=== PATIENT | female | born 1955 | race Caucasian/White ===

== ENCOUNTER → 2016-10-16 | Outpatient (CLI) | payer OTHER ==
[~2016-10-16] MED LIST: GADOBUTROL 10 ML VIAL IVP ONE
--- NOTE | 2016-10-16 15:56 | MR ---
MRI of the Brain(Without and With Contrast) Contrast: 7 mL intravenous Gadavist without complication. History: Non-small cell lung cancer, initial staging for brain metastases Comparison: None Technique: Sagittal and axial T1-weighted images. Axial fast T2 2nd echo, GRE, diffusion and FLAIR im ages. Postgadolinium sagittal, axial and coronal images. Findings: There is no evidence of parenchymal metastatic disease or abnormal meningeal enhancement to suggest meningeal carcinomatosis. There is prominent bilateral supratentorial isovolumic T2-weighted hyperintensity in the subcortical deep and periventricular white matter. Many lesions are confluent. There is no associated enhancement, hemorrhage on the gradient imaging sequence or restricted diffus ion. There is no primary brain mass lesion, hemorrhage, acute infarction, hydrocephalus, or abnormal menin geal enhancement to suggest meningitis. There is no evidence of a chronic subdural hematoma. The para nasal and mastoid sinuses are normally aerated. Flow-void is present in both cavernous carotid arteri es and in the basilar artery. The craniocervical junction is normal. There is no calvarial metastati c disease. No evidence for metastatic lung cancer. No evidence for metastatic lung cancer. There is d egenerative disk disease involving the C4-C5 level. The left mandibular condyle appears eroded and baltazar th temporomandibular joint menisci are anteriorly displaced in front of the mandibular condyles. Impression: 1. No evidence of metastatic disease 2. Moderately severe white matter disease. Is this patient chronically hypertensive or diabetic?
== END ==
LOC: FIMAGING 08:41
PROVIDERS: ATTEND Internal Medicine Hematology & Oncology
DX: C34.90 Malignant neoplasm of unspecified part of unspecified bronchus or lung (principal); R90.82 White matter disease, unspecified
CPT/HCPCS: A9585

== ENCOUNTER 2016-11-16 07:08 | Inpatient (IN) | payer OTHER ==
[~2016-11-16 07:08] MED LIST changes: -GADOBUTROL 10 ML VIAL IVP ONE; +cefOXitin SODIUM 1 GM in D5W 50 ML IV ONE
[2016-11-16] MEDS ORDERED: ONDANSETRON 4 MG/2 ML VIAL IVP PRN (07:34)
[2016-11-16] MEDS ORDERED: ACETAMINOPHEN 325 MG TAB PO PRN (07:34)
[2016-11-16] MEDS ORDERED: LIDOCAINE 1% 5 ML SDV ONE (07:49)
[2016-11-16] MEDS ORDERED: BUPIVACAINE/EPI 0.5% 30 ML SDV ONE (07:58)
[2016-11-16] MEDS ORDERED: LR 1,000 ML IV ONE (08:32)
[2016-11-16] MEDS ORDERED: LIDOCAINE 1% 5 ML SDV ID PRN (08:32)
[2016-11-16] MEDS ORDERED: fentaNYL 250 MCG/5 ML INJ ONE (09:48)
[2016-11-16] MEDS ORDERED: PROPOFOL 200 MG/20 ML VIAL ONE (09:51)
[2016-11-16] MEDS ORDERED: LIDOCAINE 2% 5 ML SDV ONE (09:52)
[2016-11-16] MEDS ORDERED: ROCURONIUM 50 MG/5 ML VIAL ONE ×2 (09:52→11:02)
[2016-11-16] MEDS ORDERED: DEXAMETHASONE 4 MG/ML VIAL ONE (09:54)
[2016-11-16] MEDS ORDERED: MIDAZOLAM 2 MG/2 ML VIAL ONE ×2 (10:02→13:07)
--- NOTE | 2016-11-16 12:39 | POSTOPPROG ---
Post Op Note Date of Operation: 11/16/16 Surgeon: Aiden Ge Manager Intelligence: Faina Gutierrez Anesthesiologist: Sameer Harris Anesthesia: GET(General Endotracheal) Pre-op Diagnosis: LLL lung CA Post-op Diagnosis: same Procedure: L VATS c LLL lobectomy Findings: tumor in LLL, slight puckering of visceral pleura, no obvious local mets Inf/Abcess present in the surg proc area at time of surgery?: No EBL: Minimal Complications: none Drains: Other (2 28 Fr chest tubes) Specimen(s): LLL to pathology
[2016-11-16] MEDS ORDERED: fentaNYL 100 MCG/2 ML INJ ONE ×3 (12:50→13:26)
[2016-11-16] MEDS ORDERED: ceFAZolin 2 GM/DEXTROSE 100 ML IV SCH (14:00)
[2016-11-16] MEDS: cefOXitin SODIUM 1 GM in D5W 50 ML IV SCH ×3 (14:12→23:35)
--- NOTE | 2016-11-16 14:16 | SOAPPROG ---
SOAP Progress Note Assessment/Plan: Assessment/Plan: 61 Y F s/p L VATS c LLL lobectomy for adenoCA, POD#0. Post op check. AFVSS. No air leak at rest (did not test cough). Pain controlled. Wounds dressed. Continue routine post op care. 11/17/16 14:59 Objective: Vital Signs Temp Pulse Resp BP Pulse Ox 36.9 C 60 14 140/67 H 95 11/16/16 14:08 11/16/16 14:08 11/16/16 14:08 11/16/16 14:08 11/16/16 14:08 11/15/16 11/16/16 11/17/16 05:59 05:59 05:59 Intake Total 900 Output Total 310 Balance 590 ICD10 Worksheet Patient Problems: Problems Problem Status Onset Lung cancer Acute
--- NOTE | 2016-11-16 14:29 | GOP ---
DATE OF OPERATION: 11/16/2016 SURGEON: Aiden Ge MD [employer] WORKER: YUSUF Lacey ANESTHESIOLOGIST: Dr. Harris PREOPERATIVE DIAGNOSIS: Left lower lobe adenocarcinoma of the lung. POSTOPERATIVE DIAGNOSIS: Left lower lobe adenocarcinoma of the lung. PROCEDURE PERFORMED: Video-assisted thoracoscopic surgery-assisted left lower lobectomy. FINDINGS: The patient was found to have a 3 cm-appearing lesion on the periphery of the left lower lobe. There was no evidence of any spread of the tumor in the thorax. Multiple small nodes were se en and appeared to be significantly involved. DESCRIPTION OF PROCEDURE: Patient was taken to the operating room, where she received satisfactory general endotracheal anesthesia by Dr. Harris. She was placed in the right lateral decubitus position, and prepped and draped in the usual sterile fashion. A short incision was made in the 6th intercostal space at the midaxillary line and a trocar was intr oduced. The thoracoscope was introduced. Two other trocars were placed in the upper chest under di rect vision. The major fissure was exposed and the vessels were dissected free of the major fissure. Good visual ization of the arteries to the lingula and upper lobes were seen. The superior segment artery was i solated and the basal vessels were isolated. They were all freed up with sharp dissection and encir cled. The basal arteries were divided with an Endo DRAKE stapler, and the superior pole vessels were a lso divided with the same stapler. Hemostasis appeared to be adequate. The inferior pulmonary vein was then dissected free with the Harmonic Scalpel and sharp dissection t ill it could be isolated. It was then divided with the Endo DRAKE stapler, as well. Another small ve nous branch was also isolated and divided with that stapler. This left only the bronchus. This bro nchus was cleaned up of all the attached tissue. It was crossclamped, and there was good inflation of the upper lobe. It was then divided with the DRAKE stapler as well and the specimen was then remov ed through a mini thoracotomy incision, which had been used for the stapler input. Wound was irrigated. Hemostasis was assured. Trocars were removed under direct vision. Two #28 ch est tubes were brought in, 1 anteriorly and 1 posteriorly, secured to the skin with silk sutures, th en a Marcaine catheter was placed in the posterior chest as well. The mini thoracotomy site was nadine sed with running #1 Vicryl suture and 3-0 Vicryl for the subcu, 4-0 Monocryl subcuticular stitch for the skin. The remaining single trocar site was closed with a 4-0 Monocryl for the skin. The wound s were all infiltrated with 0.5% Marcaine and the chest was sprayed with some topical Marcaine as we ll. The chest tubes and the Marcaine catheter were secured with 2-0 silk sutures. The wounds were all infiltrated. She tolerated the procedure well. She was taken to the recovery room in good condition. The specim en was sent to Pathology and revealed no involvement of the bronchial margins and no obvious trudi d isease. She tolerated the procedure well, taken to recovery room in good condition. /[id number]/MODL
[2016-11-16] MEDS: BUPIVACAINE 0.5% 30 ML SDV MISC SCH ×3 (14:36→21:25)
[2016-11-16] MEDS: OXYCODONE/APAP 5/325 TAB PO PRN (16:48)
[2016-11-16] MEDS: HYDROmorphONE/DILAUDID 1 MG/ML SYR IVP PRN ×2 (16:48→20:10)
[2016-11-16] MEDS: KETOROLAC 15 MG/1 ML SDV IVP SCH ×2 (18:20→23:35)
[2016-11-16] MEDS: D5W 1/2 NS W/ 20 KCl/L 1,000 ML IV SCH (18:27)
[2016-11-16] MEDS ORDERED: NON-FORMULARY NEW DRUG (Zolpidem Tartrate [Ambien] 10 MG) PO SCH (21:00)
[2016-11-16] MEDS: HYDROCODONE/APAP 5/325 TAB PO PRN (21:25)
[2016-11-16] MEDS: ZOLPIDEM TARTRATE 5 MG TAB PO SCH (23:41)
[2016-11-17] MEDS: D5W 1/2 NS W/ 20 KCl/L 1,000 ML IV SCH (01:36)
[2016-11-17] MEDS: BUPIVACAINE 0.5% 30 ML SDV MISC SCH ×6 (01:37→21:41)
[2016-11-17] MEDS: HYDROmorphONE/DILAUDID 1 MG/ML SYR IVP PRN ×4 (01:37→21:39)
[2016-11-17] MEDS: OXYCODONE/APAP 5/325 TAB PO PRN ×6 (01:38→21:47)
[2016-11-17] MEDS: KETOROLAC 15 MG/1 ML SDV IVP SCH ×3 (05:22→17:31)
[2016-11-17] MEDS: cefOXitin SODIUM 1 GM in D5W 50 ML IV SCH (05:22)
[2016-11-17] MEDS: SENNOSIDES/DOCUSATE SODIUM TAB PO SCH ×2 (08:45→21:48)
--- NOTE | 2016-11-17 09:56 | SOAPPROG ---
SOAP Progress Note Assessment/Plan: Assessment/Plan: 61 Y F s/p L VATS c LLL lobectomy for adenoCA, POD#1. Doing well. Pain controlled. Small air leak. Tolerating regular diet. Add PRN laxatives. D/c alarcon. Buff capp IV. Ppx abx to today. Dispo: may transfer from ICU. 11/17/16 09:53 Subjective: Pain worse while in bed. Didn't sleep well. No SOB. No N/V. Objective: Vital Signs Temp Pulse Resp BP Pulse Ox 36.9 C 56 L 16 137/62 H 97 11/17/16 05:00 11/17/16 08:00 11/17/16 08:00 11/17/16 08:00 11/17/16 08:00 11/16/16 11/17/16 11/18/16 05:59 05:59 05:59 Intake Total 3350 Output Total 2185 Balance 1165 gen: alert, oriented, nad, sitting oob in chair w grand daughter braiding hair, smiling heent: mmm chest: ctab, small air leak, no wob cor: rrr abd: soft ext: no edema wounds: well dressed no saturation drain: thin serosanguinous ICD10 Worksheet Patient Problems: Problems Problem Status Onset Lung cancer Acute - ICD10 Problem Qualifiers (1) Lung cancer Qualifiers: Laterality: left Lung location: lower lobe of lung Qualified Code(s): C34.32 - Malignant neoplasm of lower lobe, left bronchus or lung
[2016-11-17] MEDS: DIAZEPAM 5 MG TAB PO PRN ×2 (13:25→19:36)
[2016-11-17 17:01] LABS: HEMATOCRIT 43.3 % (38.0-47.0); HEMOGLOBIN 14.3 g/dL (12.6-16.3)
[2016-11-17 17:18] LABS: ANION GAP 10 mEq/L (8-16); CALCIUM 9.9 mg/dL (8.5-10.4); CARBON DIOXIDE 28 mEq/l (22-31); CHLORIDE 101 mEq/L (97-110); GLOMERULAR FILTRATION RATE 56; GLUCOSE 86 mg/dL (70-100); POTASSIUM 5.2 mEq/L (3.5-5.2); SODIUM 139 mEq/L (134-144)
[2016-11-17] MEDS ORDERED: HYDROmorphONE/DILAUDID 2 MG/ML INJ IVP PRN (17:54)
[2016-11-17] MEDS: ZOLPIDEM TARTRATE 5 MG TAB PO SCH (21:48)
[2016-11-18] MEDS: KETOROLAC 15 MG/1 ML SDV IVP SCH ×4 (00:18→17:45)
[2016-11-18] MEDS: BUPIVACAINE 0.5% 30 ML SDV MISC SCH ×6 (02:25→22:09)
[2016-11-18] MEDS: SENNOSIDES/DOCUSATE SODIUM TAB PO SCH ×2 (08:25→22:10)
[2016-11-18] MEDS: OXYCODONE/APAP 5/325 TAB PO PRN ×3 (10:00→22:10)
[2016-11-18] MEDS: DIAZEPAM 5 MG TAB PO PRN ×3 (10:01→22:27)
[2016-11-18] MEDS: BISACODYL 10 MG SUPP PR PRN (12:06)
--- NOTE | 2016-11-18 14:02 | SOAPPROG ---
SOAP Progress Note Assessment/Plan: Assessment: 61yo female s/p LLL lobectomy, POD 2, adenocarcinoma Path pending. Tolerating regular diet, pain well controlled, doing deep breathing exercises, nursing unable to put marcaine in catheter PE Awake alert Left chest tubes in place, catheter pulled back approx 2cm, kinked just under skin CTA B/L Chest tubes with high output, no leak evident today. Plan: continue suction ok to try and use marcaine catheter now that it has been pulled back, if not working then ok to remove, discussed with nursing. 11/18/16 13:57 Objective: Vital Signs Temp Pulse Resp BP Pulse Ox 36.8 C 54 L 14 122/69 H 94 11/18/16 08:33 11/18/16 08:33 11/18/16 08:33 11/18/16 08:33 11/18/16 08:33 Laboratory Results 11/17/16 16:15 11/17/16 16:15 11/17/16 11/18/16 11/19/16 05:59 05:59 05:59 Intake Total 3350 450 Output Total 2185 1760 Balance 1165 -1310 ICD10 Worksheet Patient Problems: Problems Problem Status Onset Lung cancer Acute
[2016-11-18] MEDS: HYDROmorphONE/DILAUDID 1 MG/ML SYR IVP PRN ×2 (14:35→22:09)
[2016-11-18] MEDS: ZOLPIDEM TARTRATE 5 MG TAB PO SCH (22:10)
[2016-11-19] MEDS: BUPIVACAINE 0.5% 30 ML SDV MISC SCH ×6 (01:23→21:41)
[2016-11-19] MEDS: KETOROLAC 15 MG/1 ML SDV IVP SCH ×5 (01:23→23:59)
[2016-11-19] MEDS: SENNOSIDES/DOCUSATE SODIUM TAB PO SCH ×2 (08:12→21:40)
[2016-11-19] MEDS: HYDROmorphONE/DILAUDID 1 MG/ML SYR IVP PRN ×5 (09:16→20:30)
[2016-11-19] MEDS: DIAZEPAM 5 MG TAB PO PRN ×2 (09:16→17:38)
[2016-11-19] MEDS: OXYCODONE/APAP 5/325 TAB PO PRN ×2 (12:15→21:41)
--- NOTE | 2016-11-19 13:12 | SOAPPROG ---
SOAP Progress Note Assessment/Plan: Assessment: 61yo female s/p LLL lobectomy, POD 3, adenocarcinoma biosy history, Path from surgery consistent with adenocarcinoma, negative margins Pain controlled, catheter working well now, tolerating regular diet, doing deep breathing exercises PE Awake alert Chest left tubes in place, no leak, bandage dry, wheezes, small amount of crackles B/L CXR no significant consolidation, effusion Chest tube output decreased Plan Chest tube removal likely Wednesday Possibly home late Wednesday, or Wednesday. 11/18/16 13:57 11/19/16 13:08 Objective: Vital Signs Temp Pulse Resp BP Pulse Ox 36.7 C 56 L 16 137/74 H 97 11/19/16 07:23 11/19/16 07:23 11/19/16 07:23 11/19/16 07:23 11/19/16 07:23 Laboratory Results 11/17/16 16:15 11/17/16 16:15 11/18/16 11/19/16 11/20/16 05:59 05:59 05:59 Intake Total 450 Output Total 1760 180 130 Balance -1310 -180 -130 ICD10 Worksheet Patient Problems: Problems Problem Status Onset Lung cancer Acute
[2016-11-19] MEDS: ZOLPIDEM TARTRATE 5 MG TAB PO SCH (21:40)
[2016-11-20] MEDS: BUPIVACAINE 0.5% 30 ML SDV MISC SCH ×7 (02:03→22:27)
[2016-11-20] MEDS: KETOROLAC 15 MG/1 ML SDV IVP SCH ×4 (06:00→23:33)
[2016-11-20] MEDS: SENNOSIDES/DOCUSATE SODIUM TAB PO SCH ×2 (07:27→22:28)
--- NOTE | 2016-11-20 13:44 | SOAPPROG ---
SOAP Progress Note Assessment/Plan: Assessment: 61yo female s/p LLL lobectomy, POD 4, adenocarcinoma biopsy history, Path from surgery consistent with adenocarcinoma, negative margins Pain controlled, catheter working well, tolerating regular diet, still doing deep breathing exercises PE Awake alert, just done brushing her teeth Chest left tubes in place, no leak, bandage dry, wheezes, small amount of crackles B/L CXR no significant consolidation, effusion Chest tube output decreased Plan Chest tube removal likely Wednesday Possibly home late Wednesday, or Wednesday. 11/18/16 13:57 11/19/16 13:08 11/20/16 13:39 Objective: Vital Signs Temp Pulse Resp BP Pulse Ox 36.9 C 83 18 137/91 H 93 11/20/16 07:39 11/20/16 13:33 11/20/16 13:33 11/20/16 13:33 11/20/16 13:33 Laboratory Results 11/17/16 16:15 11/17/16 16:15 11/19/16 11/20/16 11/21/16 05:59 05:59 05:59 Output Total 180 320 Balance -180 -320 ICD10 Worksheet Patient Problems: Problems Problem Status Onset Lung cancer Acute
--- NOTE | 2016-11-20 13:45 | SOAPPROG ---
SOAP Progress Note Assessment/Plan: Assessment: 61yo female s/p LLL lobectomy, POD 4, adenocarcinoma biopsy history, Path from surgery consistent with adenocarcinoma, negative margins Pain controlled, complaining of swelling/stiffness on right side of her neck- possibly subcutaneous emphysema, catheter working well, tolerating regular diet , still doing deep breathing exercises PE Awake alert Chest left tubes still in place, no leak, bandage dry, trace wheezes and small amount of crackles B/L CXR done yesterday no significant consolidation, effusion Chest tube output increased this morning, if <150 tomorrow, OK to remove chest tube Plan Continue to monitory swelling/stiffness of right side of neck Possible Chest tube removal tomorrow and may go home if everything goes well. Possibly home late Wednesday, or Wednesday. 11/18/16 13:57 11/19/16 13:08 11/20/16 13:42 11/20/16 13:49 11/20/16 14:20 Subjective: Patient was complaining of swelling/stiffness on the right side of her neck possiblly subcutaneous emphysema - will continue to monitor Other than that no complaints of SOB, N/V. Objective: Vital Signs Temp Pulse Resp BP Pulse Ox 36.9 C 83 18 137/91 H 93 11/20/16 07:39 11/20/16 13:33 11/20/16 13:33 11/20/16 13:33 11/20/16 13:33 Laboratory Results 11/17/16 16:15 11/17/16 16:15 11/19/16 11/20/16 11/21/16 05:59 05:59 05:59 Output Total 180 320 Balance -180 -320 Gen: AAO ENT: mmm Chest: chest tube still in place, no leak, bandage dry, chest tube output increased today, trace wheezes and small crackles on both lungs Cardio: rrr Abd: soft nontender Ext: Still doing passive movements with her left arm, (-) edema ICD10 Worksheet Patient Problems: Problems Problem Status Onset Lung cancer Acute
[2016-11-20] MEDS: HYDROmorphONE/DILAUDID 1 MG/ML SYR IVP PRN ×2 (14:30→20:45)
[2016-11-20] MEDS: DIAZEPAM 5 MG TAB PO PRN (15:29)
--- NOTE | 2016-11-20 17:14 | SOAPPROG ---
[facility] Progress Note Assessment/Plan: Assessment: DOING REASONABLY WELL STATUS POST LEFT LOWER LOBECTOMY / NO AIR LEAK / CHEST TUBE DRAINAGE CONTINUES TO BE AN ISSUE / WOUNDS OKAY / CHEST X-RAY IS WELL EXPANDED PATH REVEALS NO NODES IN THE SPECIMEN BUT MARGINS ARE NEGATIVE / VISCERAL PLEURA IS PUCKERED Plan: DISCONTINUE SUCTION AND HOPEFULLY CHEST TUBE DRAINAGE WILL DECREASE / ONCOLOGY FOLLOW-UP 11/20/16 17:10 Objective: Vital Signs Temp Pulse Resp BP Pulse Ox 37.1 C 74 16 129/74 H 90 L 11/20/16 16:00 11/20/16 16:00 11/20/16 16:00 11/20/16 16:00 11/20/16 16:00 Laboratory Results 11/17/16 16:15 11/17/16 16:15 11/19/16 11/20/16 11/21/16 05:59 05:59 05:59 Output Total 180 320 Balance -180 -320 ICD10 Worksheet Patient Problems: Problems Problem Status Onset Lung cancer Acute
[2016-11-20] MEDS: DIAZEPAM 10 MG/2 ML SYR IVP PRN (18:57)
[2016-11-20] MEDS: OXYCODONE/APAP 5/325 TAB PO PRN (20:45)
[2016-11-20] MEDS: ZOLPIDEM TARTRATE 5 MG TAB PO SCH (20:45)
[2016-11-20] MEDS: HYDROCODONE/APAP 5/325 TAB PO PRN (23:34)
[2016-11-21] MEDS: HYDROmorphONE/DILAUDID 1 MG/ML SYR IVP PRN ×3 (01:25→22:40)
[2016-11-21] MEDS: BUPIVACAINE 0.5% 30 ML SDV MISC SCH ×3 (05:05→15:04)
[2016-11-21] MEDS: OXYCODONE/APAP 5/325 TAB PO PRN ×2 (05:50→22:39)
[2016-11-21] MEDS: KETOROLAC 15 MG/1 ML SDV IVP SCH ×2 (05:51→15:12)
--- NOTE | 2016-11-21 09:07 | SOAPPROG ---
SOAP Progress Note Assessment/Plan: Assessment: status post left VATS lower lobectomy for lung cancer. Chest tube output is decreasing continue chest tube for today. Hopefully we will be able to remove this tomorrow continue ambulation and incentive spirometer regular diet S: No changes O: dressing is clean dry and intact. There is serosanguineous fluid in the chest tube container. There is a very minimal air leak she has decreased lung sounds at the bases. Regular rate. she is sitting up on the side of the bed and appears comfortable Plan: 11/21/16 09:06 Objective: Vital Signs Temp Pulse Resp BP Pulse Ox 36.6 C 69 14 123/83 H 95 11/21/16 08:00 11/21/16 08:00 11/21/16 08:00 11/21/16 08:00 11/21/16 08:00 Laboratory Results 11/17/16 16:15 11/17/16 16:15 11/20/16 11/21/16 11/22/16 05:59 05:59 05:59 Output Total 320 175 Balance -320 -175 ICD10 Worksheet Patient Problems: Problems Problem Status Onset Lung cancer Acute
[2016-11-21] MEDS: HYDROCODONE/APAP 5/325 TAB PO PRN ×3 (10:03→19:48)
[2016-11-21] MEDS: SENNOSIDES/DOCUSATE SODIUM TAB PO SCH ×2 (10:04→19:47)
[2016-11-21] MEDS ORDERED: diphenhydrAMINE 25 MG CAP PO PRN (19:41)
[2016-11-21] MEDS: ZOLPIDEM TARTRATE 5 MG TAB PO SCH (22:39)
[2016-11-22] MEDS: OXYCODONE/APAP 5/325 TAB PO PRN (02:07)
[2016-11-22] MEDS: HYDROCODONE/APAP 5/325 TAB PO PRN ×3 (09:23→21:38)
[2016-11-22] MEDS: SENNOSIDES/DOCUSATE SODIUM TAB PO SCH ×2 (09:24→21:39)
--- NOTE | 2016-11-22 12:08 | SOAPPROG ---
SOAP Progress Note Assessment/Plan: Assessment: 61yo F s/p VATs lobectomy - Chart only says 160cc out from CT but RN and patient both endorse that the output has been more like 260 which is reflected on the canister itself - keep CT, Reg diet, bowel regimen. OOBTC, doing well - Anticipate CT out tomorrow, likely home following if pain well controlled. Plan: 11/22/16 12:07 Subjective: Doing well, eating breakfast. Pain appropriate. Objective: Vital Signs Temp Pulse Resp BP Pulse Ox 37.1 C 71 16 133/79 H 90 L 11/22/16 08:00 11/22/16 08:00 11/22/16 08:00 11/22/16 08:00 11/22/16 08:00 Laboratory Results 11/17/16 16:15 11/17/16 16:15 11/21/16 11/22/16 11/23/16 05:59 05:59 05:59 Output Total 175 160 Balance -175 -160 ICD10 Worksheet Patient Problems: Problems Problem Status Onset Lung cancer Acute
[2016-11-22] MEDS: HYDROmorphONE/DILAUDID 1 MG/ML SYR IVP PRN ×2 (16:27→21:45)
[2016-11-22] MEDS: PANTOPRAZOLE SODIUM 40 MG TAB PO SCH (18:08)
[2016-11-22] MEDS: ZOLPIDEM TARTRATE 5 MG TAB PO SCH (21:38)
[2016-11-22] MEDS: DIAZEPAM 10 MG/2 ML SYR IVP PRN (23:39)
[2016-11-23] MEDS: HYDROCODONE/APAP 5/325 TAB PO PRN ×4 (04:54→21:18)
[2016-11-23] MEDS: HYDROmorphONE/DILAUDID 1 MG/ML SYR IVP PRN ×5 (04:54→23:38)
[2016-11-23] MEDS: SENNOSIDES/DOCUSATE SODIUM TAB PO SCH ×2 (08:59→21:18)
[2016-11-23] MEDS: PANTOPRAZOLE SODIUM 40 MG TAB PO SCH (08:59)
[2016-11-23] MEDS: DIAZEPAM 10 MG/2 ML SYR IVP PRN ×3 (10:12→23:31)
--- NOTE | 2016-11-23 10:59 | SOAPPROG ---
SOAP Progress Note Assessment/Plan: Assessment: 61yo female s/p LLL lobectomy, POD 4, adenocarcinoma biopsy history, Path from surgery consistent with adenocarcinoma, negative margins Pain well controlled, wants to shower, tolerating regular diet, chest tubes on water seal. PE Awake alert, moving around easily Chest 2 left tubes still in place, no leak, bandage dry, trace wheezes. Chest tube output 200/last 24hrs Plan: ok to shower then place xerofoam, gauze Possible Chest tube removal tomorrow and may go home if everything goes well. Objective: Vital Signs Temp Pulse Resp BP Pulse Ox 36.7 C 59 L 18 143/70 H 92 11/23/16 08:00 11/23/16 08:00 11/23/16 08:00 11/23/16 08:00 11/23/16 08:00 Laboratory Results 11/17/16 16:15 11/17/16 16:15 11/22/16 11/23/16 11/24/16 05:59 05:59 05:59 Intake Total 400 Output Total 160 170 Balance -160 230 ICD10 Worksheet Patient Problems: Problems Problem Status Onset Lung cancer Acute
[2016-11-23] MEDS: BISACODYL 10 MG SUPP PR PRN (21:19)
[2016-11-23] MEDS: ZOLPIDEM TARTRATE 5 MG TAB PO SCH (23:31)
[2016-11-24] MEDS: SENNOSIDES/DOCUSATE SODIUM TAB PO SCH ×2 (08:55→20:17)
[2016-11-24] MEDS: PANTOPRAZOLE SODIUM 40 MG TAB PO SCH (08:55)
[2016-11-24] MEDS: HYDROmorphONE/DILAUDID 1 MG/ML SYR IVP PRN (08:55)
[2016-11-24] MEDS: SIMETHICONE 80 MG TAB CHEW PO PRN ×2 (15:29→20:13)
[2016-11-24] MEDS: HYDROCODONE/APAP 5/325 TAB PO PRN (17:40)
--- NOTE | 2016-11-24 21:26 | SOAPPROG ---
SOAP Progress Note Assessment/Plan: Assessment/Plan: 61 Y F s/p L VATS c LLL lobectomy for adenoCA. Seen and examined earlier today. CT drainage down and no air leak. D/c'ed chest tubes. CXR c tiny apical PTX. Will get CXR in am. If stable, plan to d/c home. S: Positional pains, seem to correlate c chest tube. No SOB. O: alert, nad no wob no airleak ctab rrr wounds clean abd soft no pedal edema 11/24/16 21:24 Objective: Vital Signs Temp Pulse Resp BP Pulse Ox 36.7 C 67 17 123/83 H 93 11/24/16 20:00 11/24/16 20:00 11/24/16 20:00 11/24/16 20:00 11/24/16 20:00 Laboratory Results 11/17/16 16:15 11/17/16 16:15 11/23/16 11/24/16 11/25/16 05:59 05:59 05:59 Intake Total 400 1460 1000 Output Total 170 100 61 Balance 230 1360 939 ICD10 Worksheet Patient Problems: Problems Problem Status Onset Lung cancer Acute
[2016-11-24] MEDS: ZOLPIDEM TARTRATE 5 MG TAB PO SCH (23:06)
[2016-11-25] MEDS: HYDROCODONE/APAP 5/325 TAB PO PRN (04:29)
[2016-11-25] MEDS: PANTOPRAZOLE SODIUM 40 MG TAB PO SCH (07:47)
[2016-11-25] MEDS: SENNOSIDES/DOCUSATE SODIUM TAB PO SCH (08:09)
[2016-11-25 08:15] VITALS: BP 149/85; PULSE 68; RESP 14; TEMP 98.6; O2SAT 94
--- NOTE | 2016-11-25 10:26 | SOAPPROG ---
SOAP Progress Note Assessment/Plan: Assessment/Plan: 61 Y F s/p L VATS c LLL lobectomy for adenoCA. chest xray stable. d/c to home today. S: Patient doing well today and excited to be discharged (+) bloated sensation (+) SOB when walking, incentive spirometer doesn't help --- doesn't bother her - - prob d/t to smoking (-) N/V (-) pain No complaints O: alert, nad no wob no airleak ctab rrr wounds clean abd soft no pedal edema 11/25/16 10:31 Objective: Vital Signs Temp Pulse Resp BP Pulse Ox 37.0 C 68 14 149/85 H 94 11/25/16 08:00 11/25/16 08:00 11/25/16 08:00 11/25/16 08:00 11/25/16 08:00 Laboratory Results 11/17/16 16:15 11/17/16 16:15 11/24/16 11/25/16 11/26/16 05:59 05:59 05:59 Intake Total 1460 1150 Output Total 100 61 Balance 1360 1089 ICD10 Worksheet Patient Problems: Problems Problem Status Onset Lung cancer Acute
== END 2016-11-25 10:14 | disposition home or self-care (01) | DRG 165 ==
LOC: F3E 07:08 → OBSVTOIN 07:37 → F2N 13:58 → F3E 11-17 10:01
PROVIDERS: ADMIT Surgery; ATTEND Surgery
DX: C34.32 Malignant neoplasm of lower lobe, left bronchus or lung (principal)
CPT/HCPCS: 97116-GP; 97162-GP; 97166-GO; 97530-GP; 97535-GO; J0697; J1100; J1170; J1885; J2250; J2405; J2704; J3010

== ENCOUNTER → 2016-11-30 | Outpatient (CLI) | payer OTHER | LOC: FIMAGING 13:34 | PROVIDERS: ATTEND Physician Assistant | DX: J90 Pleural effusion, not elsewhere classified (principal); Z90.2 Acquired absence of lung [part of]; C34.90 Malignant neoplasm of unspecified part of unspecified bronchus or lung ==

== ENCOUNTER → 2017-02-17 | Outpatient (CLI) | payer OTHER | LOC: FIMAGING 12:03 | PROVIDERS: ATTEND Internal Medicine Hematology & Oncology | DX: M25.512 Pain in left shoulder (principal); Z85.118 Personal history of other malignant neoplasm of bronchus and lung ==

== ENCOUNTER → 2017-03-15 | Outpatient (CLI) | payer OTHER | LOC: FIMAGING 10:02 | PROVIDERS: ATTEND Physician Assistant | DX: M19.011 Primary osteoarthritis, right shoulder (principal); M19.012 Primary osteoarthritis, left shoulder; M51.34 Other intervertebral disc degeneration, thoracic region; M51.36 Other intervertebral disc degeneration, lumbar region; M50.30 Other cervical disc degeneration, unspecified cervical region; C34.90 Malignant neoplasm of unspecified part of unspecified bronchus or lung | CPT/HCPCS: A9503 ==

== ENCOUNTER → 2017-05-06 | Outpatient (CLI) | payer OTHER | LOC: CIMAGING 12:29 | PROVIDERS: ATTEND Family Medicine | DX: E04.1 Nontoxic single thyroid nodule (principal) | CPT/HCPCS: 76536-PO ==

== ENCOUNTER → 2017-05-19 | Outpatient (CLI) | payer OTHER ==
[~2017-05-19] MED LIST changes: +LIDOCAINE 1% 300 MG/30 ML SDV ONE; -cefOXitin SODIUM 1 GM in D5W 50 ML IV ONE
== END ==
LOC: FIMAGING 09:58
PROVIDERS: ATTEND Radiology Diagnostic Radiology
PROC: BG44ZZZ Ultrasonography of Thyroid Gland (ICD-10-PCS; principal; 2017-05-19)
PROC: 0GBG3ZX Excision of Left Thyroid Gland Lobe, Percutaneous Approach, Diagnostic (ICD-10-PCS; principal; 2017-05-19)
DX: E04.1 Nontoxic single thyroid nodule (principal)

== ENCOUNTER → 2017-06-16 | Outpatient (CLI) | payer OTHER | LOC: FIMAGING 13:04 → EDSTATUS 13:05 | PROVIDERS: ATTEND Internal Medicine Hematology & Oncology | DX: C34.32 Malignant neoplasm of lower lobe, left bronchus or lung (principal) ==

== ENCOUNTER → 2017-08-19 | Outpatient (CLI) | payer OTHER | LOC: CIMAGING 15:46 | PROVIDERS: ATTEND Family Medicine | DX: H35.82 Retinal ischemia (principal); Z87.891 Personal history of nicotine dependence | CPT/HCPCS: 93880-PO ==

== ENCOUNTER 2018-05-14 11:06 | Inpatient (IN) | payer OTHER ==
[2018-05-14] MEDS ORDERED: IOPAMIDOL (ISOVUE 370) 100 ML BTL IV ONE (11:28)
--- NOTE | 2018-05-14 11:30 | EDPHY ---
H & P Time Seen by Provider: 05/14/18 11:14 HPI/ROS: CHIEF COMPLAINT: Trouble with word finding HISTORY OF PRESENT ILLNESS: The patient is a 62-year-old female who comes to the emergency department complaining of difficulty finding words. She states that sometimes she cannot think of the right word and she has to pause for several seconds before it comes to her and other times it never comes. She noticed this changed about 2 months ago but states that is gotten gradually worse and seems to be significantly worse over the last 2 weeks. 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 She does not take blood thinners. No trauma. No fever. No headache. She has not had any focal weakness or numbness. No vision changes. No difficulty ambulating. Severity: Moderate Modifying factors: None REVIEW OF SYSTEMS: Constitutional: denies: chills, fever, recent illness, recent injury EENTM: denies: blurred vision, double vision, nose congestion Respiratory: denies: cough, shortness of breath Cardiac: denies: chest pain, irregular heart rate, lightheadedness, palpitations Gastrointestinal/Abdominal: denies: abdominal pain, diarrhea, nausea, vomiting, blood streaked stools Genitourinary: denies: dysuria, frequency, hematuria, pain Musculoskeletal: denies: joint pain, muscle pain Skin: denies: lesions, rash, jaundice, bruising Neurological: See HPI denies: headache, numbness, paresthesia, tingling, dizziness, weakness Hematologic/Lymphatic: denies: blood clots, easy bleeding, easy bruising Immunologic/allergic: denies: HIV/AIDS, transplant EXAM: GENERAL: Well-appearing, well-nourished and in no acute distress. HEAD: Atraumatic, normocephalic. EYES: Pupils equal round and reactive to light, extraocular movements intact, sclera anicteric, conjunctiva are normal. ENT: TMs normal, nares patent, oropharynx clear without exudates. Moist mucous membranes. NECK: Normal range of motion, supple without lymphadenopathy or JVD. LUNGS: Breath sounds clear to auscultation bilaterally and equal. No wheezes rales or rhonchi. HEART: Regular rate and rhythm without murmurs, rubs or gallops. ABDOMEN: Soft, nontender, normoactive bowel sounds. No guarding, no rebound. No masses appreciated. BACK: No CVA tenderness, no spinal tenderness, step-offs or deformities EXTREMITIES: Normal range of motion, no pitting or edema. No clubbing or cyanosis. NEUROLOGICAL: Patient does have noticeable pauses while trying to think of the right words to say. She typically is able to come up with word after a few seconds. Cranial nerves II through XII grossly intact. Normal speech, normal gait. 5/5 strength, normal movement in all extremities, normal sensation, normal reflexes NIH stroke score 1 she could name 5 out of the 6 objects on the card. PSYCH: Normal mood, normal affect. SKIN: Warm, dry, normal turgor, no visible rashes or lesions. Source: Patient Exam Limitations: No limitations - Medical/Surgical History Hx Asthma: No Hx Chronic Respiratory Disease: No Hx Diabetes: No Hx Cardiac Disease: No Hx Renal Disease: No Hx Cirrhosis: No Hx Alcoholism: No Hx HIV/AIDS: No Hx Splenectomy or Spleen Trauma: No Other PMH: NO SURGERIES - Family History Significant Family History: No pertinent family hx - Social History Smoking Status: Former smoker Alcohol Use: None Constitutional: Initial Vital Signs Temperature (C) 36.8 C 05/14/18 11:30 Heart Rate 54 L 05/14/18 11:30 Respiratory Rate 18 05/14/18 11:30 Blood Pressure 161/88 H 05/14/18 11:30 O2 Sat (%) 95 05/14/18 11:30 O2 Delivery Mode Room Air Allergies/Adverse Reactions: No Known Allergies Allergy (Verified 05/14/18 16:43) Home Medications: Medication Instructions Recorded Latanoprost 0.005% [Xalatan 0.005% 1 drops EACHEYE HS 05/14/18 (*)] Zolpidem Tartrate [Ambien 5MG (*)] 10 mg PO HS PRN 05/14/18 Medical Decision Making - Diagnostics EKG Interpretation: An EKG obtained and was read and documented in trace view. Please see trace view for full reading and report. Sinus bradycardia, nonspecific T-wave abnormality, no previous for comparison ED Course/Re-evaluation: 12:40 p.m. the patient has what appears to be a tumor with edema on her CT scan. I discussed this with her. We are waiting for the official report and will page Neurosurgery. I have ordered a bed for admission. The patient understands and is understand these saddened. Symptoms are unchanged. She is bradycardic and hypertensive likely Kingsley's response. 12:50 p.m. Radiology feels that this is likely a cystic tumor versus abscess. The patient does not have a fever or white count or recent sinus complaints. Have paged Neurosurgery and will arrange transfer. Will obtain blood cultures. 12:55 p.m. I discussed the case with Dr. Browne from Neurosurgery who accepted to the Neurosurgery service and request Decadron. 2:50 p.m. after 2 hr the ambulance is not yet arrived. Bed is ready at [facility]. Family is here and feels comfortable driving the patient. She is stable. Differential Diagnosis: Partial list of the Differential diagnosis considered include but were not limited to; CVA, tumor and although unlikely based on the history and physical exam, I also considered trauma, infection. Critical Care Time: Critical care time spent by me, Dr. Lanier exclusive with this patient was 30 minutes, exclusive of the PA time exclusive of procedures. The organ system that was at risk was neurologic and I gave medications, diagnostics, consultation and admission to prevent worsening of the patient's condition - Data Points Medications Given: Dexamethasone (Decadron Injection) 4 mg IVP Q6HRS ANA Stop: 11/10/18 17:59 Last Admin: 05/16/18 17:41 Dose: 4 mg Levetiracetam 750 mg/ Sodium (Chloride) 107.5 mls @ 430 mls/hr IV BID ANA Stop: 11/10/18 20:59 Last Admin: 05/16/18 20:17 Dose: 107.5 mls Latanoprost (Xalatan 0.005%) 1 drops EACHEYE HS ANA Stop: 11/10/18 20:59 Last Admin: 05/16/18 20:17 Dose: 1 drop Senna/Docusate Sodium (Senokot-S) 1 - 2 tab PO BID ANA PRN Reason: Protocol Stop: 11/10/18 20:59 Last Admin: 05/16/18 20:17 Dose: Not Given Discontinued Medications Dexamethasone (Decadron Injection) 10 mg IVP EDNOW ONE Stop: 05/14/18 12:57 Last Admin: 05/14/18 12:59 Dose: 10 mg Point of Care Test Results: CBC CBC Collection Date 05/14/18 CBC Collection Time 11:41 WBC 5.6 RBC 4.72 HGB 15 HCT 45.7 PLT 243 Neut # 3.5 Neut 63.5 LYMPH # 1.7 LYMPH 30 Other WBC # 0.4 Other WBC 6.5 MCV 96.8 Chemistry 05/14/18 05/14/18 11:46 11:46 POC Sodium 146 mEq/L H mEq/L (135-145) POC Potassium 3.8 mEq/L mEq/L (3.3-5.0) POC Chloride 112.0 mEq/L H mEq/L (97-110) POC Total CO2 27 mEq/L mEq/L (22-31) POC BUN 22 mg/dL mg/dL (7-23) POC Creatinine 1.1 mg/dL H mg/dL (0.6-1.0) POC Glucose 97 mg/dL mg/dL (70-100) POC Calcium 9.7 mg/dL mg/dL (8.5-10.4) POC Total Bilirubin 0.6 mg/dL mg/dL (0.1-1.4) POC AST 19 IU/L IU/L (14-46) POC ALT 13 IU/L IU/L (9-52) POC Alk Phosphatase 50 IU/L IU/L (38-126) POC Troponin I 0.01 ng/mL ng/mL (0.00-0.08) POC Total Protein 6.9 g/dL g/dL (6.3-8.2) POC Albumin 3.9 g/dL g/dL (3.5-5.0) Departure - Departure [facility]: [facility] In[facility] Acute Clinical Impression: Intracranial mass Condition: Fair
--- NOTE | 2018-05-14 11:37 | CPEKG ---
Test Reason : OPEN Blood Pressure : / mmHG Vent. Rate : 049 BPM Atrial Rate : 049 BPM P-R Int : 170 ms QRS Dur : 092 ms QT Int : 449 ms P-R-T Axes : 048 036 028 degrees QTc Int : 406 ms Sinus bradycardia Borderline ST depression, diffuse leads Confirmed by Pérez Lanier ([id number]) on 05/14/2018 11:36:31 AM Referred By: Confirmed By:Pérez Lanier
[2018-05-14] MEDS ORDERED: DEXAMETHASONE 10 MG/ML VIAL IVP ONE (12:56)
[2018-05-14 13:23] LABS: INR 1.02 (0.83-1.16); PROTIME(PATIENT) 13.6 SEC (12.0-15.0)
[2018-05-14] MEDS ORDERED: LORazepam 2 MG/ML INJ IVP PRN (17:36)
[2018-05-14] MEDS ORDERED: BISACODYL 10 MG SUPP PR PRN (17:36)
[2018-05-14] MEDS ORDERED: diphenhydrAMINE 25 MG CAP PO PRN (17:36)
[2018-05-14] MEDS ORDERED: HYDROCODONE/APAP 5/325 TAB PO PRN (17:36)
[2018-05-14] MEDS ORDERED: oxyCODONE IR 5 MG TAB PO PRN (17:36)
[2018-05-14] MEDS ORDERED: POLYETHYLENE GLYCOL 3350 17 GM PKT PO PRN (17:36)
[2018-05-14] MEDS ORDERED: MAGNESIUM HYDROXIDE 30 ML UDCUP PO PRN (17:36)
[2018-05-14] MEDS ORDERED: ONDANSETRON DISINTEGRATING 4 MG TAB PO PRN (17:36)
[2018-05-14] MEDS ORDERED: ACETAMINOPHEN 325 MG TAB PO PRN (17:36)
[2018-05-14] MEDS ORDERED: LACTULOSE 20 GM/30 ML UDCUP PO PRN (17:36)
[2018-05-14] MEDS ORDERED: ONDANSETRON 4 MG/2 ML VIAL IVP PRN (17:36)
[2018-05-14] MEDS ORDERED: NS 1,000 ML IV SCH (17:45)
[2018-05-14] MEDS: DEXAMETHASONE 4 MG/ML VIAL IVP SCH ×2 (18:54→23:25)
[2018-05-14 19:16] LABS: PLATELET COUNT 253 10^3/uL (150-400)
[2018-05-14] MEDS ORDERED: ZOLPIDEM TARTRATE 5 MG TAB PO PRN (19:28)
[2018-05-14] MEDS ORDERED: IOPAMIDOL (ISOVUE-300) 100 ML BTL ONE (19:28)
--- NOTE | 2018-05-14 20:03 | GCON ---
[f rep st] CONSULTATION DATE OF CONSULTATION: 05/14/2018 The patient is a pleasant 62-year-old female with a history of lung cancer. She had a left wedge res ection in November 2016. She returns to the hospital today with word-finding difficulties that have bee n going on intermittently for a number of months. She has had no weight loss, or drenching night swe ats or fever or chills. She has had no neck stiffness. She has had regular followup for cancer with Dr. Lerner, her oncologist. She says she is due for some scans. In the emergency department, she was evaluated for stroke and she was found to have a large left side d, hypodense lesion with necrosis, with 8 mm [id number]-yq-[id number] shift. This is concerning for brain tumor versus infection. There is focal thickening of the ring at the anterior inferior margin, 13 x 7.5 x 9 mm. There is no evidence of hemorrhage. I discussed the case with Dr. Pérez Lanier. REVIEW OF SYSTEMS: Complete 10-point review of systems conducted, negative except as noted in the HP I. PAST MEDICAL HISTORY: Lung cancer, tobacco use, hypothyroidism, thyroid nodule that has apparently b een biopsied. ALLERGIES: No known drug allergies. MEDICATIONS: Ambien, latanoprost. SOCIAL HISTORY: Occasional alcohol. Quit smoking at the time of her diagnosis of lung cancer. FAMILY HISTORY: Her daughter is present at bedside and healthy. PHYSICAL EXAMINATION: VITAL SIGNS: Temp 36.3, blood pressure 154/109, pulse 56, breathing 15 times a minute, 95% on room air. GENERAL: No acute distress. HEENT: Sclerae anicteric. Oropharynx dale r. Mucous membranes moist. NECK: Supple without lymphadenopathy or JVD. LUNGS: Clear to ausculta tion bilaterally. HEART: S1, S2. ABDOMEN: Soft, nontender, nondistended. LOWER EXTREMITIES: No edema. Calves are nontender. SKIN: Without rash. NEUROLOGIC: She has an apparent left-sided facial droop that is actually just her [place] face. Spee ch is normal and fluent. Able to name objects. Upper extremity and lower extremity strength are 5/5 bilaterally. Noted though, however, during our conversation is that she did have some word-finding difficulties. Head imaging is as in the HPI. EKG interpreted by me shows sinus bradycardia at 49 wi th normal axis and intervals. No ST or T-wave changes. ASSESSMENT/PLAN: A 62-year-old female with likely recurrent metastatic lung cancer. 1. Brain lesion. This likely represents recurrent lung cancer as it is known to metastasize to the brain. There is some vasogenic edema noted and she is started on dexamethasone. We will follow her exam. There is no evidence of herniation or significant midline shift, although this should be follo wed. The original path of her lung cancer shows carcinoma of the lung, adenocarcinoma invasive of ac inar pattern. 2. Metastatic cancer workup. Chest, abdomen, pelvis, CTs ordered. Oncology will see her. 3. Glaucoma. Continue her eye drops. 4. Bradycardia. Will follow. Notably, she was bradycardic during her last admission as well. DISPOSITION: Observation status. /[id number]/MODL
--- NOTE | 2018-05-14 20:16 | PDCONSULT ---
[employer]ior [employer] Processor Note: NEUROSURGERY H&P dictated 62F with metastatic lung cancer, likely new met to brain, some expressive aphasia - will need oncology workup - mri brain w/wo - sean 4q6 - pt/ot/speech Kj Browne MD
[2018-05-14] MEDS: SENNOSIDES/DOCUSATE SODIUM TAB PO SCH (20:51)
[2018-05-14] MEDS: levETIRAcetam 750 MG in NS 100 ML IV SCH (20:51)
[2018-05-14] MEDS: LATANOPROST 0.005% 2.5 ML OPHT DROPS EACHEYE SCH (20:51)
--- NOTE | 2018-05-14 20:58 | GHP ---
[f rep st] HISTORY AND PHYSICAL DATE OF ADMISSION: 05/14/2018 The patient was seen and evaluated at 7:30 p.m. in general care floor at [facility]. HPI: Jesika Arambula is a 62-year-old woman with a past medical history of lung adenocarcinoma who had a left lower lobectomy by Dr. Ge 1-1/2 years ago. She is followed now by Dr. Lerner in the O ncology Clinic. I do not have any notes available from these, but she is under the impression that h er cancer has been in remission. She presented to the Urgent Care today with 2 months of increasing word-finding difficulties. A CT and subsequent CT angiogram was done at that time, which shows signi ficant left frontal edema with a roughly 1.5 or 2 cm apparent mass in the left frontal lobe at the gr ay-white junction which is likely metastatic in nature. She was sent over to [facility] where we have been asked to see her. Her current complaints of word-finding difficulties. She d enies any headaches or neurologic symptoms. She says she has had abdominal pain since her lung surge ry, but this has not changed. She denies any shortness of breath or chest pain. REVIEW OF SYSTEMS: A 10-point review of systems is negative other than described above in HPI. PAST MEDICAL HISTORY: 1. Lung adenocarcinoma with a left lower lobectomy 1-1/[address] Ge. 2. Apparent history of hypertension, although the patient says that she is not taking any medication s any longer. 3. Low back pain. 4. Significant history of smoking. PAST SURGICAL HISTORY: 1. Left lower lobectomy for lung cancer. 2. Left shoulder surgery. FAMILY HISTORY: Family history was reviewed with the patient but is noncontributory to this admissio n. SOCIAL HISTORY: The patient is a former heavy smoker, but quit just before her lobectomy. She denie s any alcohol or other drug use. 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 ALLERGIES: No known drug allergies. HOME MEDICATIONS: The patient denies taking any medications at home. PHYSICAL EXAM: VITAL SIGNS: Currently she is afebrile and slightly bradycardic with sinus bradycard ia. GENERAL: She is awake, alert, and oriented x3. She does have an expressive aphasia of moderate severity with some word-finding difficulty, but repetition is intact. HEENT: Her face is symmetric . Her tongue is midline. Pupils are equal, round, reactive to light. She has full 5/5 strength of the deltoids, biceps, triceps, wrist flexion, extension, and sports equipment racker bilaterally. There is no pronator drift in the upper extremities. She also has 5/5 strength in hip flexion, extension, knee flexion, e xtension and plantar and dorsiflexion. Her sensation is grossly normal. Deep tendon reflexes are no rmal. IMAGING: Review of CT of the head and subsequent CT angiogram reveal a roughly 2 cm mass at the steinberg -white junction in the left frontal lobe with very significant surrounding vasogenic edema and a mild amount of left to right shift and some effacement of the left frontal horn of the lateral ventricle. LABORATORY REVIEW: White count is 5.2, hemoglobin 15.6, hematocrit 46.4, platelet count is 253,000. PT is 13.6, INR is 1.0, PTT is 26.8. Sodium is 145, potassium 4.1, BUN is 22, creatinine 0.8, gluco se is 133. Troponin was 0.012. ASSESSMENT AND PLAN: Jesika Arambula is a 62-year-old woman with metastatic lung cancer. She appea rs to have metastatic disease to the brain. She will need a full staging workup, which we would prob ably ask Oncology to assist us with. She will get a CT of the chest, abdomen, pelvis, and subsequent MRI of the brain with and without contrast. Based on what we see on the MRI of the brain we can dec yuval if surgical therapy versus radiation therapy is appropriate and I will discuss this with her late r on. We will keep her on Decadron 4 mg q.6 hours and would like her to be on this for at least denisse ral days prior to surgical intervention as this will decrease the amount of edema that she has. We w ill have Speech, Physical Therapy and Occupational therapy work with her as well. We will discuss fu rther options once the imaging studies are done. /[id number]/MODL
[2018-05-14] MEDS ORDERED: GADOBUTROL 10 ML VIAL IVP ONE (21:50)
[2018-05-15] MEDS: DEXAMETHASONE 4 MG/ML VIAL IVP SCH ×3 (05:33→19:13)
--- NOTE | 2018-05-15 06:24 | PDMN ---
Medical Necessity Medical necessity: [facility] [place] [facility] Oncology: Malignant neoplasm of brain, unspecified 2 days: pt with new brain mass appears to be brain mets. pt with hx of lung cancer with LLlobectomy 1 1/2 yrs ago. pt with aphasia- word finding difficulties. further eval , monitoring and tx needed anticipate > 2 MN.
--- NOTE | 2018-05-15 06:28 | NEUSURGPN ---
Assessment/Plan: Assessment: 62 yo female admitted to NS/IM consulted with a newly discovered left frontal brain mass. Pt [place] with speech difficulties [place] [facility] [place] Plan: -MRI/CT of the brain shows GBM vs metastatic process -CT of C/A/P shows uterine mass, thyroid nodule -IM on board as well-appreciate their care -Oncology reportedly on board-will confirm they are consulted. Pts prior oncology doctor is Dr Lerner -PT/OT/ST-CPM -warning signs given -call with any questions or concerns -pt understands and agrees Subjective: Awake and alert. NAD. No new events per RN/Pt Objective: AAO x 3, PERRLA/EOMI no droop CN 2-12 grossly intact +lt touch 5/5 BUE/BLE = Neuro Check Frequency: per routine Urinary Catheter in Place: No - Physician Discussed Patient with : [facility] Neurosurgery Physical Exam - Vitals, I&O, Labs I and O 05/14/18 05/15/18 05/16/18 05:59 05:59 05:59 Intake Total 1136 Output Total 300 Balance 836 Weight 69.853 kg Intake: Oral (ml) 500 IV Infused (ml) 636 Ns 1,000 ml @ 100 mls/hr 528 IV CONT ANA Rx#: [id number] levETIRAcetam 750 mg In 108 Ns 100 ml @ 430 mls/hr IV BID ANA Rx#:[id number] Output: Urine (ml) 300 Toilet 300 Other: Intake Quantity Yes Sufficient Number of Voids 1 Vital Signs Temp Pulse Resp BP Pulse Ox 36.9 C 52 L 17 115/58 L 91 L 05/15/18 05:12 05/15/18 05:12 05/15/18 05:12 05/15/18 05:12 05/15/18 05:12 Laboratory Results 05/14/18 18:46 05/14/18 18:46 ICD10 Worksheet Patient Problems: Problems Problem Status Onset Intracranial mass Acute Lung cancer Acute
[2018-05-15] MEDS: SENNOSIDES/DOCUSATE SODIUM TAB PO SCH ×2 (08:35→22:09)
[2018-05-15] MEDS: levETIRAcetam 750 MG in NS 100 ML IV SCH ×2 (09:24→20:47)
--- NOTE | 2018-05-15 10:43 | HOSPPROG ---
Hospitalist Progress Note Assessment/Plan: * Left frontal Brain mass - suspect met from lung cancer more than new primary -IV decadron - neurosurgery to decide surgery vs. XRT -IV keppra - seizure prevention * Lung cancer s/p wedge resection -oncology to consult * Uterine mass - ? fibroma * Thyroid nodule - likely incidental -check TSH Subjective: No new complaints Objective: Vital Signs Temp Pulse Resp BP Pulse Ox 36.5 C 53 L 16 123/63 H 88 L 05/15/18 08:00 05/15/18 08:00 05/15/18 08:00 05/15/18 08:00 05/15/18 08:00 Laboratory Results 05/14/18 18:46 05/14/18 18:46 05/14/18 05/15/18 05/16/18 05:59 05:59 05:59 Intake Total 1136 Output Total 300 Balance 836 PT 13.6 SEC (12.0-15.0) 05/14/18 11:41 INR 1.02 (0.83-1.16) 05/14/18 11:41 CT chest/abd/pelvis - uterine mass, thyroid nodule, pulmonary nodule EKG viewed, my personal interpretation is - minimal ST depression - Physical Exam Constitutional: no apparent distress, appears nourished, not in pain Cardiovascular: regular rate and rhythym, no murmur, rub, or gallop Respiratory: no respiratory distress, no rales or rhonchi, clear to auscultation Gastrointestinal: normoactive bowel sounds, soft, non-tender abdomen, no palpable masses Skin: no rashes or abrasions, no fluctuance, no induration Neurologic: AAOx3, sensation intact bilaterally Psychiatric: interacting appropriately, not anxious, not encephalopathic, thought process linear ICD10 Worksheet Patient Problems: Problems Problem Status Onset Intracranial mass Acute Lung cancer Acute
--- NOTE | 2018-05-15 13:31 | GHP ---
[f rep st] HISTORY AND PHYSICAL DATE OF ADMISSION: 05/14/2018 REASON FOR CONSULTATION: History of lung cancer with new brain lesion. HISTORY OF PRESENT ILLNESS: The patient is a very pleasant 62-year-old female admitted with a severa l-week history of difficulty word finding and found to have an isolated lesion in the left frontal lo be. The patient's history is notable for a diagnosis of stage IB (T2a N0 M0) adenocarcinoma with an acinar pattern of the left lower lobe. The patient's initial staging did not show any evidence of me tastatic disease, and she underwent a left lower lobe lobectomy in October 2016. Pathology revealed a 2.4 cm tumor with negative margins. Tumor did invade into the visceral pleura. There was lymphov ascular space invasion. There was no trudi sampling. The patient was felt to have stage IA disease and has been on a course of active surveillance. More recently, she reports a several-month history of difficulty with word finding. She presented to the emergency room yesterday after her family members had noted this as well. CT angiogram initiall y identified a left frontal lobe lesion that was potentially described as an abscess or cystic lesion . However, a brain MRI described a 2.2 cm heterogeneous ring-enhancing lesion that was felt to be mo st consistent with either metastasis or primary GBM. There was extensive left frontal lobe vasogenic edema with rightward subfalcine herniation and midline shift. In the background, there was severe m icrovascular ischemic gliosis. There was no acute infarct or hemorrhage. The patient had CT scan of the chest, abdomen, and pelvis, with abdominal CT identifying a 4 cm mass, with a differential inclu ding uterine fibroid, carcinoma, or leiomyosarcoma. There was no evidence of bony or hepatic metasta sis and no other abnormalities identified. Chest CT showed that the patient was status post left low er lobe lobectomy. There was a 6 mm nonspecific ground-glass nodule noted in the periphery of the ri ght lower lobe, and a 1.9 cm nodule was noted in the right lobe of the thyroid, but otherwise negativ e. The patient is here today with her family. She denies any headache or focal neurologic symptoms. Th ere have been no fevers or chills. She has not fallen. She denies any weight loss or new pain. PAST MEDICAL HISTORY: Lung cancer and hypothyroidism. PAST SURGICAL HISTORY: Left lower lobe lobectomy in October 2016. SOCIAL HISTORY: She was previously a heavy smoker and quit at the time of her diagnosis. She drinks alcohol occasionally. She previously worked as a nurse. REVIEW OF SYSTEMS: A 10-point review of systems is negative. PHYSICAL EXAM: GENERAL: She is alert, awake, and appropriate, sitting at the bedside. VITAL SIGNS: Blood pressure 137/60, heart rate 50, and she is afebrile. HEENT: Pupils are equal. Sclerae anic teric. Oropharynx clear. LUNGS: Clear to auscultation. HEART: Regular rate. ABDOMEN: Soft and nontender. LYMPHATICS: No cervical, supraclavicular, or axillary adenopathy. LABORATORY DATA: White blood cell count 5.2, hematocrit 46, and platelets 253. Comprehensive metabo lic panel is unremarkable. IMPRESSION: This is a 62-year-old female with a history of left lower lobe lobectomy in October for stage IB (T2a NX M0) adenocarcinoma with acinus features of the left lower lobe. The patient h as been undergoing active surveillance and now presents with an isolated brain lesion. The different ial includes isolated brain metastasis versus a primary brain tumor. The patient has several nonspec ific findings on CT imaging, including a thyroid nodule, a 4 cm uterine mass, and a subpleural 6 mm n odule in the right lower lobe, all of which do not sound highly concerning. With that said, we will attempt to have the CT scans compared directly to the current scans to see if there is any difference . Irregardless, however, management of the brain tumor is first and foremost. I would favor surgica l resection if Neurosurgery feels that this could be safely done. This will not only improve her juwan rologic status, but will also give us a definitive diagnosis. I will continue to follow along with cristobal conn. /[id number]/MODL
--- NOTE | 2018-05-15 16:36 | ASMTCASEMG ---
Living Arrangements What is your living Answers: Alone arrangement? Who do you live with? Type Of Residence What kind of residence do Answers: House you live in? Discharge Plan Comments Coordination Status Comments Notes: Pt is a 62 y/o female admitted with word finding difficulties. Pt has been experiencing word finding difficulties for 2 months now. Pt is being followed by Dr. Lerner in Oncology. Pt believes that her cancer is in remission. OT and HAMMER FITTER have been ordered and awaiting recommendations. Needs are TBD. CM to follow. Plan: TBD Date Signed: 05/15/2018 04:36 PM Electronically Signed By:MUSTAPHA Krishnamurthy
[2018-05-15] MEDS: LATANOPROST 0.005% 2.5 ML OPHT DROPS EACHEYE SCH (20:46)
[2018-05-16] MEDS: DEXAMETHASONE 4 MG/ML VIAL IVP SCH ×4 (00:21→17:41)
--- NOTE | 2018-05-16 08:24 | NEUSURGPN ---
Assessment/Plan: ssessment/Plan: Assessment: 62 yo female admitted to NS/IM consulted with a newly discovered left frontal brain mass. Pt presented with speech difficulties to [facility] [place] yesterday Plan: -MRI/CT of the brain shows GBM vs metastatic process -CT of C/A/P shows uterine mass, thyroid nodule, oncology consulted as well and finds these less concerning and recommends treatment of brain lesion first for improvement of symptoms and diagnosis -IM on board as well-appreciate their care - Pts prior oncology doctor is Dr Lerner -PT/OT/ST-CPM -Will plan for possible OR resection of tumor Wednesday evening if OR time allows. Spoke with patient about this as well and she would like to proceed with this. -call with any questions or concerns -Discussed with Dr. Browne Subjective: Awake, alert. Denies any new or worsening symptoms. Has mild headache this morning. Objective: AAO x 3, PERRLA/EOMI no droop CN 2-12 grossly intact +lt touch 5/5 BUE/BLE = - Physician Discussed Patient with Dr.: Browne Neurosurgery Physical Exam - Vitals, I&O, Labs I and O 05/15/18 05/16/18 05/17/18 05:59 05:59 05:59 Intake Total 1136 800 Output Total 300 300 Balance 836 500 Weight 69.853 kg Intake: Oral (ml) 500 800 IV Infused (ml) 636 Ns 1,000 ml @ 100 mls/hr 528 IV CONT ANA Rx#: [id number] levETIRAcetam 750 mg In 108 Ns 100 ml @ 430 mls/hr IV BID ANA Rx#:[id number] Output: Urine (ml) 300 300 Toilet 300 300 Other: Intake Quantity Yes Sufficient Number of Voids 1 Toilet 2 Number of Stools Incontinence 1 Toilet 1 Vital Signs Temp Pulse Resp BP Pulse Ox 36.7 C 44 L 19 160/72 H 92 05/16/18 07:57 05/16/18 07:57 05/16/18 07:57 05/16/18 07:57 05/16/18 07:57 Laboratory Results 05/14/18 18:46 05/14/18 18:46 ICD10 Worksheet Patient Problems: Problems Problem Status Onset Intracranial mass Acute Lung cancer Acute
[2018-05-16] MEDS: SENNOSIDES/DOCUSATE SODIUM TAB PO SCH ×2 (08:56→20:17)
[2018-05-16] MEDS: levETIRAcetam 750 MG in NS 100 ML IV SCH ×2 (08:57→20:17)
--- NOTE | 2018-05-16 12:44 | SOAPPROG ---
SOAP Progress Note Assessment/Plan: Assessment: 1. left frontal brain lesion 2. history lung cancer, 11/06, stage 1B 3. expressive aphasia, mild Plan:to surgery wednesday05/16/18 12:41 Subjective: Feels ok Objective: Vital Signs Temp Pulse Resp BP Pulse Ox 97.5 F 39 L 16 123/67 H 96 05/16/18 11:22 05/16/18 11:22 05/16/18 11:22 05/16/18 11:22 05/16/18 11:22 Laboratory Results 05/14/18 18:46 05/14/18 18:46 05/15/18 05/16/18 05/17/18 05:59 05:59 05:59 Intake Total 1136 800 Output Total 300 300 Balance 836 500 PT 13.6 SEC (12.0-15.0) 05/14/18 11:41 INR 1.02 (0.83-1.16) 05/14/18 11:41 Physical Exam - Physical Exam General Appearance: alert, no apparent distress Respiratory: normal breath sounds Cardiac/Chest: regular rate, rhythm Abdomen: normal bowel sounds, non-tender Neuro/Psych: aphasia (mild word finding issues) ICD10 Worksheet Patient Problems: Problems Problem Status Onset Intracranial mass Acute Lung cancer Acute
--- NOTE | 2018-05-16 17:14 | HOSPPROG ---
Hospitalist Progress Note Assessment/Plan: * Isolated Left frontal Brain mass - suspect met from lung cancer more than new primary -to surgery Wednesday for resection -pathology to give definitive diagnosis * Vasogenic edema with herniation and midline shift -IV decadron -IV keppra - seizure prevention * Lung cancer - stage 1B -s/p wedge resection - 2.4 cm tumor with negative margins -was on active surveillance * Pulmonary nodule -need to compare CT to previous * Uterine mass - ? fibroid * Thyroid nodule - likely incidental -subclinical hyperthyroidism by lab * Bradycardia -suspect due to increased ICP -asymptomatic -check ECHO Subjective: NO complaints, hasn't really noticed the aphasia getting any better Objective: Vital Signs Temp Pulse Resp BP Pulse Ox 36.7 C 53 L 22 H 128/56 H 93 05/16/18 15:32 05/16/18 15:32 05/16/18 15:32 05/16/18 15:32 05/16/18 15:32 Laboratory Results 05/14/18 18:46 05/14/18 18:46 05/15/18 05/16/18 05/17/18 05:59 05:59 05:59 Intake Total 1136 800 Output Total 300 300 Balance 836 500 PT 13.6 SEC (12.0-15.0) 05/14/18 11:41 INR 1.02 (0.83-1.16) 05/14/18 11:41 tele reviewed - sinus lm - Physical Exam Constitutional: no apparent distress, appears nourished, not in pain Cardiovascular: regular rate and rhythym, no murmur, rub, or gallop Respiratory: no respiratory distress, no rales or rhonchi, clear to auscultation Gastrointestinal: normoactive bowel sounds, soft, non-tender abdomen, no palpable masses Skin: no rashes or abrasions, no fluctuance, no induration Neurologic: AAOx3, sensation intact bilaterally Psychiatric: interacting appropriately, not anxious, not encephalopathic, thought process linear ICD10 Worksheet Patient Problems: Problems Problem Status Onset Intracranial mass Acute Lung cancer Acute
[2018-05-16] MEDS: LATANOPROST 0.005% 2.5 ML OPHT DROPS EACHEYE SCH (20:17)
[2018-05-17] MEDS: DEXAMETHASONE 4 MG/ML VIAL IVP SCH ×4 (00:08→18:02)
[2018-05-17] MEDS: levETIRAcetam 750 MG in NS 100 ML IV SCH ×2 (09:34→20:26)
[2018-05-17] MEDS: SENNOSIDES/DOCUSATE SODIUM TAB PO SCH ×2 (09:34→20:25)
--- NOTE | 2018-05-17 10:40 | NEUSURGPN ---
Assessment/Plan: Assessment: 62 yo female admitted to NS/IM consulted with a newly discovered left frontal brain mass. Pt presented with speech difficulties to [facility] [place] yesterday Plan: -MRI/CT of the brain shows GBM vs metastatic process -CT of C/A/P shows uterine mass, thyroid nodule, oncology consulted as well and finds these less concerning and recommends treatment of brain lesion first for improvement of symptoms and diagnosis -IM on board as well-appreciate their care - Pts prior oncology doctor is Dr Lerner -PT/OT/ST-CPM -Will plan for OR resection of tumor at 1pm. Spoke with patient about this as well and she would like to proceed with this. -call with any questions or concerns -Continue Decadron 4mg q6 -Discussed with Dr. Browne Subjective: Subjective: Denies any new or worsening symptoms. Continues with wording findings difficulties Objective: Objective: AAO x 3, PERRLA/EOMI no droop, expressive aphasia noted CN 2-12 grossly intact +lt touch 5/5 BUE/BLE = - Physician Discussed Patient with Dr.: Browne Neurosurgery Physical Exam - Vitals, I&O, Labs I and O 05/16/18 05/17/18 05/18/18 05:59 05:59 05:59 Intake Total 800 500 Output Total 300 Balance 500 500 Intake: Oral (ml) 800 400 IV Infused (ml) 100 levETIRAcetam 750 mg In 100 Ns 100 ml @ 430 mls/hr IV BID ANA Rx#:[id number] Output: Urine (ml) 300 Toilet 300 Other: Number of Voids Toilet 2 2 Number of Stools Incontinence 1 Toilet 1 Vital Signs Temp Pulse Resp BP Pulse Ox 36.3 C 48 L 14 143/86 H 97 05/17/18 08:00 05/17/18 08:00 05/17/18 08:00 05/17/18 08:00 05/17/18 08:00 Laboratory Results 05/14/18 18:46 05/14/18 18:46 ICD10 Worksheet Patient Problems: Problems Problem Status Onset Intracranial mass Acute Lung cancer Acute
--- NOTE | 2018-05-17 10:55 | ECHO ---
[email or web address] [address] Main: [phone] Fax: Transthoracic Echocardiogram Name: KALINA GOTTLIEB MR#: [id number] Study Date: 05/17/2018 Study Time: 08:50 AM Date of : 1955 Age: 62 year(s) Height: 162.6 cm (64 in.) Weight: 68.04 kg (150 lb.) BSA: 1.73 m2 Gender: Female Examination: Echo Indication: Severe bradycardia Image Quality: Adequate Contrast: Requested by: Veronica Tesfaye BP: 143 mmHg/86 mmHg Heart Rate: Rhythm: Indication: Severe bradycardia Procedure Staff Paper Rewinder Operator: Sandra Mauricio RDCS Reading Physician: Jonh Padilla MD Requesting Provider: Conclusions: No pericardial effusion. Preserved LV systolic function. Normal left ventricular chamber dimensions with mild aortic regurgitation. Aortic valve sclerosis. Mild mitral regurgitation with normal left atrial size. Mild tricuspid regurgitation with right ventricular systolic pressure 37 mm of mercury. Ascending aorta 2.9 cm Measurements: Chambers Valvular Assessment AV/MV Valvular Assessment TV/PV Normal Normal Normal Name Value Range Name Value Range Name Value Range Ao Trinidad (2D): 2.4 cm (1.4 cm-2.6 AV Vmax: 1.15 m/s (1 m/s-1.7 TR Vmax: 2.82 mm/s ( - ) cm) m/s) TR PGmax: 32 mmHg ( - ) IVSd (2D): 0.8 cm (0.6 cm-1.1 AV maxP mmHg ( - ) syst. PAP: 37 mmHg ( - ) cm) AV meanP mmHg ( - ) PV Vmax: 0.87 m/s (0.6 m/s-0.9 LVDd (2D): 5.1 cm (3.9 cm-5.3 COLETTE (VTI): 1.4 cm ( - ) m/s) cm) MV E Vmax: 0.98 m/s ( - ) PV PGmax: 3 mmHg ( - ) LVDs (2D): 3.2 cm (2.1 cm-4 MV A Vmax: 0.97 m/s ( - ) cm) MV E/A: 1.01 ( - ) LVPWd (2D): 0.8 cm ( - ) MV PHT: 0.042 s ( - ) LVOTd 1.8 cm 1.8 cm mm MVA (PHT): 5.2 s ( - ) LVEF (BP): 53 % (>=55 %) RVDd(2D): 3.4 cm (1.9 cm-3.8 cmmm) Continued Measurements: Chambers Valvular Assessment AV/MV Valvular Assessment TV/PV Name Value Name Value Name Value LADs: 3.4 cm MV DecTime: 127 m/s CVP (est.): 5 mmHg RA Area: 16.4 cm2 MV E' Septal: 0.07 m/s MV E/E' Septal: 13.90 Patient: KALINA OGTTLIEB Study Date: 05/17/2018 Page 1 of 2 08:50 AM MV E/E' Lateral: 11.00 Additional Vessels Name Value Ao Ascendin.9 cm Inferior Vena Cava: 1.5 cm Findings: Left Ventricle: Normal size left ventricle. No LV hypertrophy. Normal global systolic LV function. EF is 53 %. No regional wall motion abnormality. Unable to assess diastolic dysfunction. Right Ventricle: Normal size right ventricle. Normal RV function. Left Atrium: The left atrium is normal in size. Right Atrium: The right atrium is normal in size. Mitral Valve: The mitral valve is normal in appearance and function. Mild mitral valve regurgitation is present. No mitral stenosis is present. Aortic Valve: The aortic valve is tri-leaflet. No aortic valve stenosis is present. Mild aortic valve regurgitation is present. Tricuspid Valve: The tricuspid valve is normal in appearance and function. Mild tricuspid regurgitation is present. The pulmonary artery pressure is normal. Right ventricular systolic pressure measures 37mmHg. Pulmonic Valve: The pulmonic valve is normal in appearance and function. Mild pulmonic valve regurgitation is noted. Aorta: The aorta is normal. Normal size aortic root measuring 2.4 cm. Normal size ascending aorta measuring 2.9 cm. IVC: The IVC is normal sized. Pericardium: No pericardial effusion. No pleural effusion. (No Signature Object) Patient: KALINA GOTTLIEB Study Date: 05/17/2018 Page 2 of 2 08:50 AM [id number]
[2018-05-17] MEDS: hydrALAZINE 20 MG/ML VIAL IVP PRN (13:03)
--- NOTE | 2018-05-17 18:39 | HOSPPROG ---
Hospitalist Progress Note Assessment/Plan: * Isolated Left frontal Brain mass - suspect met from lung cancer vs GBM -to surgery for resection -pathology to give definitive diagnosis * Vasogenic edema with herniation and midline shift -IV decadron -IV keppra - seizure prevention * Lung cancer - stage 1B -s/p wedge resection - 2.4 cm tumor with negative margins -was on active surveillance * Pulmonary nodule -need to compare CT to previous * Uterine mass - ? fibroid * Thyroid nodule - likely incidental -subclinical hyperthyroidism by lab * Bradycardia -suspect due to increased ICP -asymptomatic -ECHO okay -reassess post surgery Subjective: No complaint, aphasia about the same Objective: Vital Signs Temp Pulse Resp BP Pulse Ox 36.3 C 69 18 125/66 H 93 05/17/18 16:00 05/17/18 16:00 05/17/18 16:00 05/17/18 16:00 05/17/18 16:00 Laboratory Results 05/14/18 18:46 05/14/18 18:46 05/16/18 05/17/18 05/18/18 05:59 05:59 05:59 Intake Total 800 500 100 Output Total 300 Balance 500 500 100 PT 13.6 SEC (12.0-15.0) 05/14/18 11:41 INR 1.02 (0.83-1.16) 05/14/18 11:41 - Physical Exam Constitutional: no apparent distress, appears nourished, not in pain Cardiovascular: regular rate and rhythym, no murmur, rub, or gallop Respiratory: no respiratory distress, no rales or rhonchi, clear to auscultation Gastrointestinal: normoactive bowel sounds, soft, non-tender abdomen, no palpable masses Skin: no rashes or abrasions, no fluctuance, no induration Neurologic: AAOx3, sensation intact bilaterally Psychiatric: interacting appropriately, not anxious, not encephalopathic, thought process linear ICD10 Worksheet Patient Problems: Problems Problem Status Onset Intracranial mass Acute Lung cancer Acute
[2018-05-17] MEDS: LATANOPROST 0.005% 2.5 ML OPHT DROPS EACHEYE SCH (20:36)
[2018-05-18] MEDS: DEXAMETHASONE 4 MG/ML VIAL IVP SCH ×5 (00:08→23:56)
--- NOTE | 2018-05-18 07:43 | NEUSURGPN ---
Assessment/Plan: Assessment: 62 yo female admitted to NS/IM consulted with a newly discovered left frontal brain mass. Pt presented with speech difficulties Plan: -MRI/CT of the brain shows GBM vs metastatic process -CT of C/A/P shows uterine mass, thyroid nodule, oncology consulted as well and finds these less concerning and recommends treatment of brain lesion first for improvement of symptoms and diagnosis -IM on board as well-appreciate their care - Pts prior oncology doctor is Dr Lerner -PT/OT/ST-CPM -Will plan for OR resection of tumor at 1pm. Risks, benefits and alternatives discussed. Consents signed, placed in chart and questions answered. -call with any questions or concerns -Continue Decadron 4mg q6 -Discussed with Dr. Browne Subjective: Denies any new or worsening symptoms. Continues with wording findings difficulties Objective: AAO x 3, PERRLA/EOMI no droop, expressive aphasia noted CN 2-12 grossly intact +lt touch 5/5 BUE/BLE = - Physician Patient Seen by Dr.: Browne Neurosurgery Physical Exam - Vitals, I&O, Labs I and O 05/17/18 05/18/18 05/19/18 05:59 05:59 05:59 Intake Total 500 510 Balance 500 510 Intake: Oral (ml) 400 300 IV Infused (ml) 100 210 levETIRAcetam 750 mg In 100 210 Ns 100 ml @ 430 mls/hr IV BID ANA Rx#:[id number] Other: Number of Voids Incontinence 2 Toilet 2 Vital Signs Temp Pulse Resp BP Pulse Ox 36.5 C 37 L 17 161/73 H 93 05/18/18 07:32 05/18/18 07:32 05/18/18 07:32 05/18/18 07:32 05/18/18 07:32 Laboratory Results 05/14/18 18:46 05/14/18 18:46 ICD10 Worksheet Patient Problems: Problems Problem Status Onset Intracranial mass Acute Lung cancer Acute
[2018-05-18] MEDS: SENNOSIDES/DOCUSATE SODIUM TAB PO SCH ×2 (08:13→21:57)
[2018-05-18] MEDS: levETIRAcetam 750 MG in NS 100 ML IV SCH ×2 (08:59→21:55)
--- NOTE | 2018-05-18 12:12 | SOAPPROG ---
SOAP Progress Note Assessment/Plan: Assessment: 1. left frontal brain lesion 2. history lung cancer, 11/06, stage 1B 3. expressive aphasia, mild Plan:to surgery , review path when available 05/16/18 12:41 05/18/18 12:11 Subjective: feels about the same Objective: Vital Signs Temp Pulse Resp BP Pulse Ox 97.6 F 46 L 19 120/55 L 94 05/18/18 11:23 05/18/18 11:23 05/18/18 11:23 05/18/18 11:23 05/18/18 11:23 Laboratory Results 05/14/18 18:46 05/14/18 18:46 05/17/18 05/18/18 05/19/18 05:59 05:59 05:59 Intake Total 500 510 Balance 500 510 PT 13.6 SEC (12.0-15.0) 05/14/18 11:41 INR 1.02 (0.83-1.16) 05/14/18 11:41 ICD10 Worksheet Patient Problems: Problems Problem Status Onset Intracranial mass Acute Lung cancer Acute
--- NOTE | 2018-05-18 14:13 | ASMTCMCOM ---
CM Note CM Note Notes: Therapies continue to clear pt for home. Pt to OR tomorrow for tumor resection. Therapies to see pt after surgery. CM will continue to follow. Date Signed: 05/18/2018 02:12 PM Electronically Signed By:SHIRAZ Garcia
--- NOTE | 2018-05-18 14:16 | HOSPPROG ---
Hospitalist Progress Note Assessment/Plan: #Isolated Left frontal brain mass: suspect met from lung cancer vs GBM -to surgery for resection -pathology to give definitive diagnosis, onc following #Vasogenic edema with herniation and midline shift: Mild word finding difficulty , stable -IV decadron -IV keppra - seizure prevention #Sinus bradycardia: suspect d/t increased ICP, asymptomatic, TTE ok -reassess post surgery #Lung cancer, stage 1B -s/p wedge resection - 2.4 cm tumor with negative margins -was on active surveillance #Pulmonary nodule -need to compare CT to previous #Uterine mass: Possibly fibroid, less likely met #Thyroid nodule: Likely incidental, subclinical hyperthyroidism by lab Subjective: Feeling well, no complaints. Still having same word finding difficulty. Objective: Vital Signs Temp Pulse Resp BP Pulse Ox 36.4 C 46 L 19 120/55 L 94 05/18/18 11:23 05/18/18 11:23 05/18/18 11:23 05/18/18 11:23 05/18/18 11:23 Laboratory Results 05/14/18 18:46 05/14/18 18:46 05/17/18 05/18/18 05/19/18 05:59 05:59 05:59 Intake Total 500 510 Balance 500 510 PT 13.6 SEC (12.0-15.0) 05/14/18 11:41 INR 1.02 (0.83-1.16) 05/14/18 11:41 - Physical Exam Constitutional: no apparent distress, appears nourished, not in pain Eyes: PERRL, anicteric sclera, EOMI Ears, Nose, Mouth, Throat: moist mucous membranes, hearing normal, ears appear normal, no oral mucosal ulcers Cardiovascular: regular rate and rhythym, no murmur, rub, or gallop Respiratory: no respiratory distress, no rales or rhonchi, clear to auscultation Gastrointestinal: normoactive bowel sounds, soft, non-tender abdomen, no palpable masses Skin: no rashes or abrasions, no fluctuance, no induration Neurologic: AAOx3, sensation intact bilaterally, other (occasional slowed responses due to word finding difficulty) Psychiatric: interacting appropriately, not anxious, not encephalopathic, thought process linear ICD10 Worksheet Patient Problems: Problems Problem Status Onset Intracranial mass Acute Lung cancer Acute
[2018-05-18] MEDS: LATANOPROST 0.005% 2.5 ML OPHT DROPS EACHEYE SCH (21:55)
[2018-05-19] MEDS: DEXAMETHASONE 4 MG/ML VIAL IVP SCH ×3 (05:11→19:58)
[2018-05-19 05:59] LABS: INR 1.05 (0.83-1.16); PROTIME(PATIENT) 13.9 SEC (12.0-15.0)
[2018-05-19] MEDS ORDERED: GADOBUTROL 10 ML VIAL IVP ONE (06:14)
[2018-05-19] MEDS: levETIRAcetam 750 MG in NS 100 ML IV SCH ×2 (09:31→20:53)
--- NOTE | 2018-05-19 09:34 | PDHPUP ---
History & Physical Update H&P update statement: This history and physical update is based on an assessment of the patient which was completed after admission or registration (within 24 hours), but prior to the surgery/procedure. H&P update: H&P reviewed & patient examined
[2018-05-19] MEDS: SENNOSIDES/DOCUSATE SODIUM TAB PO SCH ×2 (09:35→20:53)
[2018-05-19] MEDS: hydrALAZINE 20 MG/ML VIAL IVP PRN (10:24)
[2018-05-19] MEDS ORDERED: ceFAZolin 2 GM/DEXTROSE 100 ML IV ONE (10:38)
--- NOTE | 2018-05-19 13:23 | HOSPPROG ---
Hospitalist Progress Note Assessment/Plan: #Isolated Left frontal brain mass: suspect met from lung cancer vs GBM. Had pre- op MRI today -to surgery today for resection -pathology to give definitive diagnosis, onc following #Vasogenic edema with herniation and midline shift: Mild word finding difficulty , stable or better today -IV decadron -IV keppra - seizure prevention #Sinus bradycardia: suspect d/t increased ICP, asymptomatic, TTE ok -reassess post surgery #Hypertension: as above, suspect this is nena's response to elevated ICP -reassess post surgery, would not start anti-hypertensive now #Lung cancer, stage 1B -s/p wedge resection - 2.4 cm tumor with negative margins -was on active surveillance #Pulmonary nodule -need to compare CT to previous #Uterine mass: Possibly fibroid, less likely met #Thyroid nodule: Likely incidental, subclinical hyperthyroidism by lab Subjective: BP up this morning, felt a little dizzy but this has resolved. Anxious about surgery, has been pushed back until 4pm Objective: Vital Signs Temp Pulse Resp BP Pulse Ox 36.8 C 43 L 23 H 157/102 H 97 05/19/18 11:33 05/19/18 11:33 05/19/18 11:33 05/19/18 11:33 05/19/18 11:33 Laboratory Results 05/19/18 04:52 05/19/18 04:52 05/18/18 05/19/18 05/20/18 05:59 05:59 05:59 Intake Total 510 400 Output Total 100 Balance 510 400 -100 PT 13.9 SEC (12.0-15.0) 05/19/18 04:52 INR 1.05 (0.83-1.16) 05/19/18 04:52 - Physical Exam Constitutional: no apparent distress, appears nourished, not in pain Eyes: PERRL, anicteric sclera, EOMI Ears, Nose, Mouth, Throat: moist mucous membranes, hearing normal, ears appear normal, no oral mucosal ulcers Cardiovascular: regular rate and rhythym, no murmur, rub, or gallop Respiratory: no respiratory distress, no rales or rhonchi, clear to auscultation Gastrointestinal: normoactive bowel sounds, soft, non-tender abdomen, no palpable masses Skin: no rashes or abrasions, no fluctuance, no induration Musculoskeletal: full muscle strength, no muscle tenderness, normal joint ROM Neurologic: other (word finding difficulty better than yesterday) Psychiatric: interacting appropriately, not anxious, not encephalopathic, thought process linear ICD10 Worksheet Patient Problems: Problems Problem Status Onset Intracranial mass Acute Lung cancer Acute
[2018-05-19] MEDS ORDERED: CEFAZOLIN 2 GM/DEXTROSE/100 ML BAG IV ONE (15:16)
[2018-05-19] MEDS ORDERED: BACITRACIN ZINC 14.2 GM OINTTUBE TP ONE ×2 (15:16→15:20)
[2018-05-19] MEDS ORDERED: BUPIVACAINE 0.25% 30 ML SDV ONE (15:17)
[2018-05-19] MEDS ORDERED: THROMBIN (BOVINE) 5,000 UNIT VIAL TP ONE (15:17)
[2018-05-19] MEDS ORDERED: MANNITOL 20% 100 GM/500 ML BAG IV ONE (15:17)
[2018-05-19] MEDS ORDERED: EPINEPHrine 1 MG/ML INJ ONE (15:18)
[2018-05-19] MEDS ORDERED: GENTAMICIN SULFATE 80 MG/2 ML VIAL ONE (15:18)
[2018-05-19] MEDS ORDERED: HYDROGEN PEROXIDE 236 ML BOTTLE TP ONE (15:18)
[2018-05-19] MEDS ORDERED: AVITENE POWDER 1 GM JAR TP ONE (15:18)
[2018-05-19] MEDS ORDERED: POVIDONE-IODINE 30 GM OINTTUBE TP ONE (15:18)
[2018-05-19] MEDS ORDERED: LR 1,000 ML IV ONE (15:38)
[2018-05-19] MEDS ORDERED: CHLORHEXIDINE GLUC HIBICLENS 118 ML BTL TP ONE (17:03)
[2018-05-19] MEDS ORDERED: PROPOFOL/EMULSION 500 MG/50 ML BOTTLE IV ONE ×3 (17:05)
[2018-05-19] MEDS ORDERED: REMIFENTANIL HCL 1 MG VIAL ONE ×2 (17:06)
[2018-05-19] MEDS ORDERED: ONDANSETRON 4 MG/2 ML VIAL ONE (17:09)
[2018-05-19] MEDS ORDERED: DEXAMETHASONE 4 MG/ML VIAL ONE ×2 (17:09→17:36)
[2018-05-19] MEDS ORDERED: ROCURONIUM 50 MG/5 ML VIAL ONE (17:36)
[2018-05-19] MEDS ORDERED: NALOXONE HCL 0.4 MG/ML INJ IVP PRN (18:31)
[2018-05-19] MEDS ORDERED: HYDROmorphONE/DILAUDID 1 MG/ML INJ IVP PRN (18:31)
[2018-05-19] MEDS ORDERED: fentaNYL 100 MCG/2 ML INJ IVP PRN (18:31)
[2018-05-19] MEDS ORDERED: ONDANSETRON 4 MG/2 ML VIAL IVP PRN (18:31)
--- NOTE | 2018-05-19 18:34 | PDANEPAE ---
ANE History of Present Illness L Frontal Crani ANE Past Medical History - Cardiovascular History Hx Hypertension: No Hx Arrhythmias: No Hx Chest Pain: No Hx Coronary Artery / Peripheral Vascular Disease: No Hx CHF / Valvular Disease: No Hx Palpitations: No - Pulmonary History Hx COPD: No Hx Asthma/Reactive Airway Disease: No Hx Recent Upper Respiratory Infection: No Hx Oxygen in Use at Home: No Hx Sleep Apnea: No Sleep Apnea Screening Result - Last Documented: Negative Pulmonary History Comment: Stage 1 mass in LLL-cancer. - Neurologic History Hx Cerebrovascular Accident: No Hx Seizures: No Hx Dementia: No - Endocrine History Hx Diabetes: No - Renal History Hx Renal Disorders: No - Liver History Hx Hepatic Disorders: No - Neurological & Psychiatric Hx Hx Neurological and Psychiatric Disorders: Yes Neurological / Psychiatric History Comment: DDD, spinal stenosis cervical and lumbar. situational depression - Cancer History Hx Cancer: Yes Cancer History Comment: L lung - Congenital Disorder History Hx Congenital Disorders: No - GI History Hx Gastrointestinal Disorders: No - Other Health History Other Health History: Muscle weakness to L arm d/t rotator cuff tear-improving with PT -post op.+ - Chronic Pain History Chronic Pain: Yes (back) - Surgical History Prior Surgeries: L rotator cuff repair/scope 09-17-16. 2 C-sections 40 years ago. L breast bx "years ago" ANE Review of Systems Review of Systems: ANE Patient History - Allergies Allergies/Adverse Reactions: No Known Allergies Allergy (Verified 05/14/18 16:43) - Home Medications Home Medications: Latanoprost 0.005% [Xalatan 0.005% (*)] 1 drops EACHEYE HS 05/14/18 [Last Taken 05/13/18] Zolpidem Tartrate [Ambien 5MG (*)] 10 mg PO HS PRN 05/14/18 [Last Taken Unknown] - NPO status NPO Since - Liquids (Date): 05/19/18 NPO Since - Liquids (Time): 00:00 NPO Since - Solids (Date): 05/19/18 NPO Since - Solids (Time): 00:00 - Smoking Hx Smoking Status: Former smoker - Alcohol Use Alcohol Use: None - Family Anes Hx Family Hx Anesthesia Complications: none ANE Labs/Vital Signs - Labs Result Diagrams: 05/19/18 04:52 05/19/18 04:52 - Vital Signs Blood Pressure: 160/73 Heart Rate: 39 Respiratory Rate: 14 O2 Sat (%): 97 Height: 160.02 cm Weight: 69.853 kg ANE Physical Exam - Airway Neck exam: FROM Mallampati Score: Class 2 Mouth exam: normal dental/mouth exam - Pulmonary Pulmonary: clear to auscultation - Cardiovascular Cardiovascular: regular rate and rhythym, bradycardia - ASA Status ASA Status: III ANE Anesthesia Plan Anesthesia Plan: general endotracheal anesthesia Lines/Monitors: arterial line Total IV Anesthesia: Yes
[2018-05-19] MEDS ORDERED: niCARdipine/NACL/200 ML BAG IV ONE (18:47)
[2018-05-19] MEDS ORDERED: niCARdipine/NACL 200 ML IV SCH (19:00)
--- NOTE | 2018-05-19 19:46 | POSTOPPROG ---
Post Op Note Date of Operation: 05/19/18 Surgeon: Kj Browne Materials Specialist: none Anesthesiologist: Nikita Anesthesia: GET(General Endotracheal) Pre-op Diagnosis: left frontal brain tumor Post-op Diagnosis: same Indication: left frontal brain tumor Procedure: left frontal craniotomy for tumor resection Findings: left frontal brain tumor Inf/Abcess present in the surg proc area at time of surgery?: No EBL: 50-100 Specimen(s): left frontal brain tumor
--- NOTE | 2018-05-19 19:48 | POSTANESTH ---
Post Anesthetic Evaluation Cardiovascular Status: Normal, Stable Respiratory Status: Normal, Stable Level of Consciousness/Mental Status: Can Participate in Eval, Alert and Oriented Pain Control: Adequate, Prn Tx Ordered Nausea/Vomiting Control: Adequate, Prn Tx Ordered Complications Possibly Related to Anesthesia: None Noted (Moves all four extremities)
--- NOTE | 2018-05-19 19:48 | PDCONSULT ---
Non Destructive Testing Specialist Note: NEUROSURGERY doing well in SDU, no complaints AAOx3, able to say name and count fingers (expressive aphasia previously), PERRL , EOMI full strength and sensation, no drift wound c/d/i POD#0 s/p resection of left frontal brain tumor -SDU overnight for q2h neuro checks -MRI tomorrow morning -dex 4q6 -continue keppra -await final path Hollie
[2018-05-19] MEDS: NS W/ 20 KCl/L 1,000 ML IV SCH (20:29)
--- NOTE | 2018-05-19 20:38 | GOP ---
[f rep st] OPERATIVE REPORT DATE OF OPERATION: 05/19/2018 SURGEON: Kj Browne MD NEUROSURGEON: Kj Browne MD SAP MANAGER: None. ANESTHESIA: General endotracheal. PREOPERATIVE DIAGNOSIS: Left frontal brain tumor in a patient with a history of lung cancer. POSTOPERATIVE DIAGNOSIS: Left frontal brain tumor in a patient with a history of lung cancer. PROCEDURE PERFORMED: 1. Left frontal craniotomy. 2. Microsurgical gross total resection of left frontal metastatic brain tumor. 3. Use of stealth stereotactic neuronavigation for volumetric gross total resection of tumor. 4. Use of intraoperative ultrasound. 5. Use of the operative microscope. FINDINGS: Successful brain tumor resection. SPECIMENS: Left frontal brain tumor for permanent pathology. ESTIMATED BLOOD LOSS: 50 cc. INDICATIONS: The patient is a 62-year-old woman who has a history of lung cancer for which she has h ad a lobectomy. Recently, she did not have any known systemic disease but presented with 1 month of aphasia. She was found to have a roughly 2 cm mass in the left frontal lobe, consistent with a metas tasis. There was a lot of surrounding vasogenic edema, so we kept her on IV steroids for about 4 day s prior to surgery. We are taking her electively today for a resection. DESCRIPTION OF PROCEDURE: After informed consent was obtained from the patient, the patient was brou ght to the operating room and was placed in the supine position on the operating table. A formal venkat e-out was performed identifying the patient by name, medical record number and date of . Preope rative antibiotics were given. Preoperative mannitol was given. The endotracheal tube was placed an d general endotracheal anesthesia was smoothly induced. The patient's head was placed in the Mayfiel d pins and turned slightly toward the right side. The Stealth was registered to the head and checked for accuracy using known surface landmarks. This was then used to localize the shortest distance to the tumor and a curvilinear incision behind the hairline was planned to expose this area. A small s trip of hair was clipped. 10 cc of 0.25% Marcaine with epinephrine was infiltrated in the skin for h emostasis. The head was prepped and draped in the normal sterile fashion. A skin incision was made using a 10 blade and the subcutaneous tissues were dissected using monopolar electrocautery. Jimmie clips were placed for hemostasis. The areolar connective tissue between the galea and the periosteum was then dissected and the flap was retracted anteriorly. A flap of periost eum was elevated and retracted anteriorly as well and the upper portion of the temporalis muscle was opened. A single bur hole was placed under the temporalis and the dura was stripped from beneath. T he craniotome was then used to turn a roughly 3 x 3 cm round craniotomy flap, which was removed. Thi s did tear the dura anteriorly, but there was minimal bleeding. At this point, the dura was opened i n a cruciate fashion. The operative microscope was brought onto the field and the remainder of the p rocedure was performed under high-power magnification. We began by using the Stealth to localize wha t we thought was the shortest distance to the tumor. The intraoperative ultrasound was also used to visualize the tumor in relation to the closest sulci. The closest sulcus was carefully dissected usi ng microdissection and opened widely. In the bank of the depth of this sulcus, a small corticectomy was made and the surrounding brain tissue was dissected. This brought us down to the capsule of the tumor, which was coagulated and then dissected. Using careful microdissection, we continued our diss ection circumferentially around the tumor. A few small vessels going to the tumor were coagulated. We continued the dissection until we had dissected around the entire tumor and it was then removed en bloc. A few small bleeders in the depth of the cavity were coagulated and no further bleeding was s een. The cavity was then copiously irrigated using sterile saline and again the cavity appeared to b e dry. The cavity was then inspected and there was no further tumor that was visualized. The margin s were checked with the Stealth and it appeared as though we had covered the entire area as intended . The cavity was then covered using Surgicel and the entire wound was irrigated. A piece of DuraGen was then placed as an inlay graft given that the dura was not intact. The remaining dura was closed over the top of this. The craniotomy flap was then plated back in place using Synthes titanium plat es and screws. The wound was again copiously irrigated using bacitracin irrigation. The temporalis muscle was closed as was the periosteum using 2-0 Vicryls. The galea was closed using interrupted 2- 0 Vicryls and the skin was closed using a running 4-0 Monocryl. The hair was then washed. Bacitraci n was placed over the wound. The patient was removed from the [place] pins. She was extubated in the operating room and transferred to the PACU in stable condition. There were no operative complications. I was scrubbed and present for the entire procedure. All sponge and needle counts were correct at the end of the case. FLUIDS AND URINE OUTPUT: Per the anesthesia record. DRAINS: None. /[id number]/MODL
[2018-05-19] MEDS: LATANOPROST 0.005% 2.5 ML OPHT DROPS EACHEYE SCH (20:54)
[2018-05-20] MEDS: DEXAMETHASONE 4 MG/ML VIAL IVP SCH ×4 (00:41→19:06)
--- NOTE | 2018-05-20 07:13 | SOAPPROG ---
SOAP Progress Note Assessment/Plan: Assessment: 62 female POD #1 sp left frontal craniotomy for resection of likely metastatic lesion. H/O lung CA Ongoing aphasia, otherwise doing well. Plan: CPM in ICU PT/OT/ST as tolerated D/W Dr. Browne MRI today. Subjective: sitting upright in bed, comfortable. Denies new numbness, tingling or weakness has some ongoing expressive aphasia Objective: Vital Signs Temp Pulse Resp BP Pulse Ox 37.0 C 40 L 14 130/56 H 100 05/19/18 21:00 05/20/18 06:00 05/20/18 06:00 05/20/18 06:00 05/20/18 06:00 Laboratory Results 05/19/18 04:52 05/19/18 04:52 05/19/18 05/20/18 05/21/18 05:59 05:59 05:59 Intake Total 400 885 Output Total 1450 Balance 400 -565 PT 13.9 SEC (12.0-15.0) 05/19/18 04:52 INR 1.05 (0.83-1.16) 05/19/18 04:52 Neuro: A+Ox4 follows commands no facial droop no pronator drift bilat ground worker weakness sens +LT throughout Expressive aphasia Incision: CDI No LETA mild swelling left forehead ICD10 Worksheet Patient Problems: Problems Problem Status Onset Intracranial mass Acute Lung cancer Acute
[2018-05-20] MEDS: SENNOSIDES/DOCUSATE SODIUM TAB PO SCH ×2 (09:22→21:24)
[2018-05-20] MEDS: NS W/ 20 KCl/L 1,000 ML IV SCH (09:22)
[2018-05-20] MEDS: levETIRAcetam 750 MG in NS 100 ML IV SCH (09:22)
--- NOTE | 2018-05-20 12:26 | HOSPPROG ---
Hospitalist Progress Note Assessment/Plan: #Isolated Left frontal brain mass: Suspect met from lung cancer vs GBM. Vasogenic edema w/midline shift on MRI. Dysarthric. -s/p left frontal craniotomy and tumor resection 05/19 -pathology to give definitive diagnosis, onc following -IV decadron, keppra -repeat MRI per nsgy -reconsulted PT/OT/POULTRY HATCHERY MANAGER #Sinus bradycardia: Slightly lower HR since surgery, now upper 30-low 40s. Asymptomatic, BP stable. TTE ok -continue to monitor; if persistent or not improving will consult cardiology #Hypertension: suspect this is nena's response to elevated ICP -hydralazine PRN, also has nicardipine gtt for persistent SBP>160 #Lung cancer, stage 1B -s/p wedge resection - 2.4 cm tumor with negative margins -was on active surveillance #Pulmonary nodule -need to compare CT to previous #Uterine mass: Possibly fibroid, less likely met #Thyroid nodule: Likely incidental, subclinical hyperthyroidism by lab Subjective: Doing well after surgery. Denies much pain. Wants to sit up in chair. No new weakness/numbness. Word finding troubles still present Objective: Vital Signs Temp Pulse Resp BP Pulse Ox 36.8 C 35 L 14 132/54 H 100 05/20/18 07:00 05/20/18 10:00 05/20/18 10:00 05/20/18 10:00 05/20/18 10:00 Microbiology 05/14/18 13:20 Blood Culture - Final Blood 05/14/18 13:00 Blood Culture - Final Blood Laboratory Results 05/19/18 04:52 05/19/18 04:52 05/19/18 05/20/18 05/21/18 05:59 05:59 05:59 Intake Total 400 885 Output Total 1450 Balance 400 -565 PT 13.9 SEC (12.0-15.0) 05/19/18 04:52 INR 1.05 (0.83-1.16) 05/19/18 04:52 - Physical Exam Constitutional: no apparent distress, appears nourished, not in pain Cardiovascular: regular rate and rhythym, no murmur, rub, or gallop Respiratory: no respiratory distress, no rales or rhonchi, clear to auscultation Gastrointestinal: normoactive bowel sounds, soft, non-tender abdomen, no palpable masses Skin: no rashes or abrasions, no fluctuance, no induration Neurologic: AAOx3, other (mild dysarthria) Psychiatric: interacting appropriately, not anxious, not encephalopathic, thought process linear ICD10 Worksheet Patient Problems: Problems Problem Status Onset Intracranial mass Acute Lung cancer Acute
--- NOTE | 2018-05-20 15:42 | ASMTCMCOM ---
CM Note CM Note Notes: Therapies recommending home with outpatient follow-up for patient. CM available for any d/c needs that might arise. Date Signed: 05/20/2018 03:41 PM Electronically Signed By:Brittany Rizzo LCSW
[2018-05-20] MEDS ORDERED: GADOBUTROL 10 ML VIAL IVP ONE (17:42)
[2018-05-20] MEDS: LATANOPROST 0.005% 2.5 ML OPHT DROPS EACHEYE SCH (21:00)
[2018-05-20] MEDS: levETIRAcetam 500 MG TAB PO SCH (21:23)
[2018-05-21] MEDS: DEXAMETHASONE 4 MG/ML VIAL IVP SCH ×3 (01:01→11:40)
[2018-05-21] MEDS: NS W/ 20 KCl/L 1,000 ML IV SCH (02:00)
--- NOTE | 2018-05-21 07:46 | SOAPPROG ---
SOAP Progress Note Assessment/Plan: Assessment: 62 female POD #2 sp left frontal craniotomy for resection of likely metastatic lesion. H/O lung CA Ongoing aphasia, otherwise doing well. Plan: - home today on steroid taper if cleared by therapies - she will be with her sister who is at the bedside - PT/OT/ST as tolerated 05/21/18 07:43 Subjective: Subjective: denies any concerning headaches; feels comfortable. denies new symptoms and has some ongoing expressive aphasia Objective: Vital Signs Temp Pulse Resp BP Pulse Ox 37.0 C 39 L 17 155/63 H 95 05/21/18 00:00 05/21/18 06:00 05/21/18 06:00 05/21/18 06:00 05/21/18 06:00 Microbiology 05/14/18 13:20 Blood Culture - Final Blood 05/14/18 13:00 Blood Culture - Final Blood Laboratory Results 05/21/18 06:00 05/21/18 06:00 05/20/18 05/21/18 05/22/18 05:59 05:59 05:59 Intake Total 885 2557 Output Total 1450 550 Balance -565 2006 PT 13.9 SEC (12.0-15.0) 05/19/18 04:52 INR 1.05 (0.83-1.16) 05/19/18 04:52 A+Ox4 follows commands no facial droop no pronator drift bilat lab rn weakness sens +LT throughout Expressive aphasia Incision: CDI No LETA mild swelling left forehead MRI brain 05/20: complete tumor resection with no evidence of residual ICD10 Worksheet Patient Problems: Problems Problem Status Onset Intracranial mass Acute Lung cancer Acute
[2018-05-21] MEDS: levETIRAcetam 500 MG TAB PO SCH (09:05)
[2018-05-21] MEDS: SENNOSIDES/DOCUSATE SODIUM TAB PO SCH (09:06)
--- NOTE | 2018-05-21 09:20 | HOSPPROG ---
Hospitalist Progress Note Assessment/Plan: #Isolated Left frontal brain mass: Suspect met from lung cancer vs GBM. Mild dysarthria. -s/p left frontal craniotomy and tumor resection 05/19 -pathology pending -IV ras estrada -reconsulted PT/OT/GLASS BLOWING INSTRUCTOR #Sinus bradycardia: HR improved from yesterday, average around 50. She is grossly asymptomatic from this. No AV block. Upon review of old records, her HR has been in upper 40-low 50s during past hospitalizations and ED visits. TTE ok -Avoid AV trudi blockers #Hypertension: Had intermittent low BPs yesterday. Suspect elevated BP due to nena's reflex. -hydralazine PRN, would not discharge on anti-hypertensive therapy at this time #Lung cancer, stage 1B -s/p wedge resection - 2.4 cm tumor with negative margins -was on active surveillance #Pulmonary nodule #Uterine mass: Possibly fibroid, less likely met #Thyroid nodule: Likely incidental, subclinical hyperthyroidism by lab Ok to discharge from medicine stand point. NSGY planning to discharge with steroid taper if passes therapy services Subjective: Feeling well. Sitting up in chair with family at bedside. Noted some dizziness yesterday when she was up working with PT. No dyspnea, chest pain , pre-syncope. Objective: Vital Signs Temp Pulse Resp BP Pulse Ox 36.7 C 44 L 16 152/60 H 95 05/21/18 08:00 05/21/18 08:00 05/21/18 08:00 05/21/18 08:00 05/21/18 08:00 Microbiology 05/14/18 13:20 Blood Culture - Final Blood 05/14/18 13:00 Blood Culture - Final Blood Laboratory Results 05/21/18 06:00 05/21/18 06:00 05/20/18 05/21/18 05/22/18 05:59 05:59 05:59 Intake Total 885 2557 Output Total 1450 550 Balance -565 2007 PT 13.9 SEC (12.0-15.0) 05/19/18 04:52 INR 1.05 (0.83-1.16) 05/19/18 04:52 - Physical Exam Constitutional: no apparent distress, appears nourished, not in pain Eyes: PERRL, anicteric sclera, EOMI Ears, Nose, Mouth, Throat: moist mucous membranes, hearing normal, ears appear normal, no oral mucosal ulcers Cardiovascular: no murmur, rub, or gallop, bradycardia, No JVD, No edema Respiratory: no respiratory distress, no rales or rhonchi, clear to auscultation Gastrointestinal: normoactive bowel sounds, soft, non-tender abdomen, no palpable masses Skin: other (healing left craniotomy incision) Neurologic: AAOx3, other (continues to have mild aphasia) Psychiatric: interacting appropriately, not anxious, not encephalopathic, thought process linear ICD10 Worksheet Patient Problems: Problems Problem Status Onset Intracranial mass Acute Lung cancer Acute
--- NOTE | 2018-05-21 12:01 | SOAPPROG ---
SOAP Progress Note Assessment/Plan: E&M lung cancer * Isolated Left frontal brain mass: Most likely explanation is a met from her previous lung cancer. Current pathology is pending to confirm versus a separate new malignancy. Postop care per neurosurgery. Further therapy will be dependent on the path by Dr. Lerner. * Non-small cell lung cancer stage Ib: Status post resection approximately 18 months ago and on active surveillance. * Word finding issues: Probably related to the malignancy and edema. She is undergoing an evaluation by speech therapy. * Disposition: She has a follow-up appointment with Dr. Lerner on Wednesday. There is no contraindication from an oncology standpoint to be discharged. Subjective: Sitting on the edge of the bed with a family member. She is having some word finding issues but no acute complaints. Objective: Vital Signs Temp Pulse Resp BP Pulse Ox 36.7 C 48 L 16 117/48 L 96 05/21/18 08:00 05/21/18 10:00 05/21/18 10:00 05/21/18 10:00 05/21/18 10:00 Microbiology 05/14/18 13:20 Blood Culture - Final Blood 05/14/18 13:00 Blood Culture - Final Blood Laboratory Results 05/21/18 06:00 05/21/18 06:00 05/20/18 05/21/18 05/22/18 05:59 05:59 05:59 Intake Total 885 2557 Output Total 1450 550 Balance -565 2007 PT 13.9 SEC (12.0-15.0) 05/19/18 04:52 INR 1.05 (0.83-1.16) 05/19/18 04:52 Physical Exam - Physical Exam General Appearance: no apparent distress Respiratory: lungs clear Cardiac/Chest: regular rate, rhythm Neuro/Psych: oriented x 3 (she needed a little prompting to get the right date) ICD10 Worksheet Patient Problems: Problems Problem Status Onset Intracranial mass Acute Lung cancer Acute
[2018-05-21 12:10] VITALS: BP 148/53
--- NOTE | 2018-05-21 14:15 | PDIAF ---
- Diagnosis Diagnosis: S/P left craniotomy for ressection of mass Code Status: Full Code - Medication Management Discharge Medications: Medications to Continue on Transfer Latanoprost 0.005% [Xalatan 0.005% (*)] 1 drops EACHEYE HS 05/14/18 [Last Taken 05/13/18] Zolpidem Tartrate [Ambien 5MG (*)] 10 mg PO HS PRN 05/14/18 [Last Taken Unknown] Acetaminophen [Tylenol 325mg (*)] 650 mg PO Q4HRS PRN tab 05/21/18 [Last Taken Unknown] Sennosides/Docusate Sodium [Senokot-S] 1 - 2 tab PO BID tab 05/21/18 [Last Taken Unknown] levETIRAcetam [Keppra 500 mg (*)] 750 mg PO BID #60 tab 05/21/18 [Last Taken Unknown] oxyCODONE IR [Oxycodone Ir (*)] 5 mg PO Q8HRS PRN #60 tab 05/21/18 [Last Taken Unknown] Discharge Medications: Refer to the Discharge Home Medication list for PRN reason. PICC Care - Routine: N/A - Orders Services needed: Home Care, Occupational Therapy, Speech Language Pathologist Home Care Face to Face: I certify that this patient was under my care and that I had the required [id number] encounter meeting the encounter requirements on the discharge day. My findings support the fact that the patient is homebound as defined in Home Care Face to Face Continued: CMS Chapter 7 Medicare Benefits Manual 30.1.1 , The condition of the patient is such that there exists a normal inability to leave home and consequently, leaving home would require a considerable and taxing effort. Diet Recommendation: no restrictions on diet Diet Texture: Regular Texture Diet Wound Care Instructions: Ok to wash hair daily with baby shampoo Activity/Weight Bearing Restrictions: avoid lift greater than 10 pounds Additional Instructions: Avoid lifting greater than 10 pounds Ok to wash hair daily with baby shampoo - Follow Up Care Current Providers and Referrals: Kj Browne MD [Medical Doctor] - follow up in 2 weeks Stephany Breen MD [Primary Care Provider] - As per Instructions
== END 2018-05-21 15:10 | disposition home or self-care (01) | DRG 25 ==
LOC: CED 11:06 → CEDHOLD 12:55 → OBSVTOIN 12:55 → F3N 15:27 → F2N 05-19 19:32
PROVIDERS: ADMIT Neurological Surgery; ATTEND Neurological Surgery
PROC: 00B00ZX Excision of Brain, Open Approach, Diagnostic (ICD-10-PCS; principal; 2018-05-19 16:15)
DX: C79.31 Secondary malignant neoplasm of brain (principal); G93.5 Compression of brain; Z85.118 Personal history of other malignant neoplasm of bronchus and lung; E03.9 Hypothyroidism, unspecified; I10 Essential (primary) hypertension; M54.2 Cervicalgia; Z87.891 Personal history of nicotine dependence; H40.9 Unspecified glaucoma; R00.1 Bradycardia, unspecified
CPT/HCPCS: 70450-PO; 70496-PO; 70498-PO; 80053-PO; 84481-90; 84484-PO; 92507-GN; 92523-GN; 96374; 97161-GP; 97166-GO; 97530-GO; 97535-GO; A9585; C1713; G0515-GO; J0171; J0360; J0690; J1100; J1580; J1953; J2270; J2405; J2704; Q9967

== ENCOUNTER 2018-06-09 17:01 | Emergency (ER) | payer OTHER ==
--- NOTE | 2018-06-09 17:21 | EDPHY ---
H & P Time Seen by Provider: 06/09/18 17:21 HPI/ROS: CHIEF COMPLAINT: Headache HISTORY OF PRESENT ILLNESS: Patient is a history of lung cancer and had left frontal craniotomy 3 weeks ago was discharged on May 21. 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 She presents today with about 4 day history of worsening headaches which are all over. Started Wednesday and a little bit better today after ibuprofen at 3:30 p.m.. Associated with nausea and her balance being worse over this past week. She has little bit of left earache. Denies fever or chills or visual symptoms. No actual vomiting. No injury or trauma. REVIEW OF SYSTEMS: Eye: no change in vision ENT: no sore throat Cardiac: no chest pain or syncope Pulmonary: no cough or SOB Abdomen: no vomiting, diarrhea, abdominal pain Musculoskeletal: no back pain Skin: no rash Neuro: HPI Constitutional: no fever : no urinary symptoms A comprehensive 10 point review of systems is otherwise negative aside from elements mentioned in the history of present illness. PAST MEDICAL HISTORY: Includes history of lung cancer with intracranial metastases. Social history: Here with her son General Appearance: Alert and conversant, cooperative. Eyes: No scleral icterus. ENT, Mouth: Normal mucous membranes. Normal tympanic membranes. Respiratory: Normal respiratory effort, breath sounds equal, lungs are clear to auscultation. Cardiovascular: Regular rate and rhythm. Gastrointestinal: Abdomen is soft and non tender. Neurological: Alert, face symmetric, normal motor and sensory in extremities. Extraocular motion intact. [id number]-qisn normal bilaterally with no pronator drift. Skin: Warm and dry, no rashes. Musculoskeletal: No peripheral edema. Psychiatric: Not agitated. Emergency Department course/MDM: Plan to check noncontrast head CT , patient declined pain medication. Labs to include electrolytes, PT PTT. 1818: Post surgical changes only, edema, no new bleed; Helgans. 184: Patient's case and imaging discussed with Hollie in OR via RN, he looked at CT, no further diagnostics or specific treatment recommended by him at this time. Patient states she is comfortable going home, with [id number] medications , declined additional pain medication prescription. 1900: At the time of discharge she is ambulatory without assistance or ataxia. Smoking Status: Former smoker Constitutional: Initial Vital Signs Temperature (C) 36.7 C 06/09/18 17:10 Heart Rate 77 06/09/18 17:10 Respiratory Rate 18 06/09/18 17:10 Blood Pressure 133/82 H 06/09/18 17:10 O2 Sat (%) 92 06/09/18 17:10 O2 Delivery Mode Room Air Allergies/Adverse Reactions: No Known Allergies Allergy (Verified 06/09/18 17:14) Home Medications: Medication Instructions Recorded Latanoprost 0.005% [Xalatan 0.005% 1 drops EACHEYE HS 05/14/18 (*)] Zolpidem Tartrate [Ambien 5MG (*)] 10 mg PO HS PRN 05/14/18 Acetaminophen [Tylenol 325mg (*)] 650 mg PO Q4HRS PRN tab 05/21/18 Sennosides/Docusate Sodium 1 - 2 tab PO BID tab 05/21/18 [Senokot-S] levETIRAcetam [Keppra 500 mg (*)] 750 mg PO BID #60 tab 05/21/18 oxyCODONE IR [Oxycodone Ir (*)] 5 mg PO Q8HRS PRN #60 tab 05/21/18 Medical Decision Making - Diagnostics Imaging Results: Imaging Impressions Head CT 06/09/18 17:29 Impression: 1. Minimal residual low-attenuation blood products within the left frontal operative bed and along the surface of the left frontal lobe deep to the craniotomy. 2. Improving swelling and mass effect since 3 weeks prior. 3. No new hemorrhage or evidence of acute ischemia. Findings discussed with Emergency Department physician, Alfredito Quinonse on 06/09/2018 , 18:22. Imaging: Discussed imaging studies w/ preschool assistant Radiologist Differential Diagnosis: Differential considered including but not limited to intracranial bleed, intracranial mass, MANAGER FLEET infection, vascular dissection, ENT infection. - Data Points Laboratory Results: Laboratory Results 06/09/18 17:38 06/09/18 17:38 06/09/18 06/09/18 06/09/18 17:38 17:38 17:38 WBC 6.98 10^3/uL 10^3/uL (3.80-9.50) RBC 4.28 10^6/uL 10^6/uL (4.18-5.33) Hgb 13.8 g/dL g/dL (12.6-16.3) Hct 40.6 % % (38.0-47.0) MCV 94.9 fL fL (81.5-99.8) MCH 32.2 pg pg (27.9-34.1) MCHC 34.0 g/dL g/dL (32.4-36.7) RDW 12.7 % % (11.5-15.2) Plt Count 251 10^3/uL 10^3/uL (150-400) MPV 9.5 fL fL (8.7-11.7) Neut % (Auto) 73.6 % % (39.3-74.2) Lymph % (Auto) 15.3 % % (15.0-45.0) [place] % (Auto) 9.5 % % (4.5-13.0) Eos % (Auto) 0.7 % % (0.6-7.6) Baso % (Auto) 0.6 % % (0.3-1.7) Nucleat RBC Rel Count 0.0 % % (0.0-0.2) Absolute Neuts (auto) 5.14 10^3/uL 10^3/uL (1.70-6.50) Absolute Lymphs (auto) 1.07 10^3/uL 10^3/uL (1.00-3.00) Absolute Monos (auto) 0.66 10^3/uL 10^3/uL (0.30-0.80) Absolute Eos (auto) 0.05 10^3/uL 10^3/uL (0.03-0.40) Absolute Basos (auto) 0.04 10^3/uL 10^3/uL (0.02-0.10) Absolute Nucleated RBC 0.00 10^3/uL 10^3/uL (0-0.01) Immature Gran % 0.3 % % (0.0-1.1) Immature Gran # 0.02 10^3/uL 10^3/uL (0.00-0.10) PT 13.0 SEC SEC (12.0-15.0) INR 0.96 (0.83-1.16) APTT 26.5 SEC SEC (23.0-38.0) Sodium 135 mEq/L mEq/L (135-145) Potassium 3.8 mEq/L mEq/L (3.3-5.0) Chloride 101 mEq/L mEq/L (97-110) Carbon Dioxide 25 mEq/l mEq/l (22-31) Anion Gap 9 mEq/L mEq/L (8-16) BUN 13 mg/dL mg/dL (7-23) Creatinine 0.6 mg/dL mg/dL (0.6-1.0) Estimated GFR > 60 Glucose 96 mg/dL mg/dL (70-100) Calcium 9.4 mg/dL mg/dL (8.5-10.4) Departure - Departure Disposition: Home, Routine, Self-Care Clinical Impression: Headache Qualifiers: Headache type: unspecified Headache chronicity pattern: acute headache Intractability: not intractable Qualified Code(s): R51 - Headache Condition: Good Instructions: Acute Headache (ED) Additional Instructions: Symptomatic treatment for headache as discussed. Referrals: Kj Browne MD [Medical Doctor] - As per Instructions
[2018-06-09 18:03] LABS: PLATELET COUNT 251 10^3/uL (150-400)
[2018-06-09 18:16] LABS: INR 0.96 (0.83-1.16)
[2018-06-09 19:03] VITALS: BP 145/82
== END 2018-06-09 19:03 | disposition home or self-care (01) ==
DX: Z98.890 Other specified postprocedural states (principal); C79.31 Secondary malignant neoplasm of brain; Z85.118 Personal history of other malignant neoplasm of bronchus and lung

== ENCOUNTER → 2018-10-19 | Outpatient (CLI) | payer OTHER, MEDICARE ==
[~2018-10-19] MED LIST changes: +GADOBUTROL 10 ML VIAL IVP ONE; -LIDOCAINE 1% 300 MG/30 ML SDV ONE
== END ==
LOC: FIMAGING 11:42
PROVIDERS: ATTEND Neurological Surgery
DX: Z08 Encounter for follow-up examination after completed treatment for malignant neoplasm (principal); C79.31 Secondary malignant neoplasm of brain; Z98.890 Other specified postprocedural states
CPT/HCPCS: 70553; A9585; 82565-PO

== ENCOUNTER → 2018-12-06 | Outpatient (CLI) | payer OTHER, MEDICARE | LOC: FIMAGING 14:21 | PROVIDERS: ATTEND Family Medicine | DX: Z12.31 Encounter for screening mammogram for malignant neoplasm of breast (principal) ==

== ENCOUNTER → 2018-12-16 | Outpatient (CLI) | payer OTHER, MEDICARE | LOC: CIMAGING 11:15 | PROVIDERS: ATTEND Family Medicine | DX: M79.631 Pain in right forearm (principal); R93.7 Abnormal findings on diagnostic imaging of other parts of musculoskeletal system | CPT/HCPCS: 73080-PO; 73090-PO ==

== ENCOUNTER → 2018-12-28 | Outpatient (CLI) | payer OTHER, MEDICARE | LOC: FIMAGING 10:08 | PROVIDERS: ATTEND Family Medicine | DX: Z00.00 Encounter for general adult medical examination without abnormal findings (principal) ==

== ENCOUNTER → 2018-12-30 | Outpatient (CLI) | payer OTHER, MEDICARE | LOC: CIMAGING 10:29 | PROVIDERS: ATTEND Family Medicine | DX: M25.421 Effusion, right elbow (principal) | CPT/HCPCS: 73080-PO ==

== ENCOUNTER → 2019-02-20 | Outpatient (CLI) | payer OTHER, MEDICARE | LOC: FIMAGING 13:05 ==